=== PATIENT | female | born 1940 | race Caucasian/White ===

== ENCOUNTER 2019-11-04 14:45 | Inpatient (IN) | payer MEDICARE, OTHER ==
[~2019-11-04 14:45] MED LIST: Lidocaine 1% PF 5 ML VIAL ONE; PROPOFOL 200 MG/20 ML VIAL ONE
--- NOTE | 2019-11-04 15:40 | CT ---
CT Abdomen Pelvis WO Con 11/04/2019 3:05 PM HISTORY: Patient became hypotensive after placement of cardiac stent today. Evaluate for retroperitoneal hemor rhage. COMPARISON: None. Technique: Multiple contiguous axial CT images are obtained through the abdomen and pelvis without IV contrast. Coronal reformats are provided. FINDINGS: This examination is limited for the evaluation of solid organs and vascular structures due to the lac k of intravenous contrast. Lower Chest: There is bibasilar atelectasis. Vascular calcifications are seen in the coronary arterie s and in the visualized lower thoracic aorta. Abdomen: Liver: Grossly normal non-enhanced CT appearance. Gallbladder: Mild increased density is seen within the gallbladder lumen which could be related to vi carious excretion of contrast due to recent administration of contrast. Pancreas: Grossly normal nonenhanced CT appearance. Spleen: Grossly normal nonenhanced CT appearance. Adrenals: Grossly normal nonenhanced CT appearance. Kidneys: Residual contrast is seen in each renal collecting system and in the ureters related to rece nt contrasted study. Ureters: Proximal ureters are partially opacified but are not dilated. Pelvis: Urinary bladder: Distended with contrast. Reproductive Organs: Uterus is either small or surgically absent. Lymph Nodes: No enlarged lymph nodes. Bowel: There is colonic diverticulosis. Loops of small bowel are normal in caliber. Vessels: Vascular calcifications are seen in the abdominal aorta and involving the iliac arteries. An intra-arterial catheter is seen with tip in the right external iliac artery with the catheter entering near the junction of the right common femoral artery and external iliac artery. Peritoneum/retroperitoneum: There is increased density fluid seen in the right aspect of the pelvis w hich is adjacent to region of the iliac vessels at the level of the arterial catheter compatible with hemorrhage. Hemorrhage extends into the mid right paracolic gutter. Abdominal Wall: Small amount of hemorrhage is seen within the right inguinal region and extending int o the subcutaneous soft tissues in the perineal region on the right. Bones: Mild degenerative changes are seen in the spine. Transitional vertebra is seen at the lumbosac ral junction. There is trace grade 1 anterolisthesis of L5 on S1 related to prominent facet degenerative changes IMPRESSION: 1. Hemorrhage within the right aspect of the pelvis and extending into the right paracolic gutter wit h hemorrhage also seen in the subcutaneous soft tissues right inguinal region. An intra-arterial catheter is noted in place as described above. 2. Additional findings as described above. 3. Above findings discussed with Dr. Hoff on 11/04/2019 at 1521 hours.
[2019-11-04 15:50] LABS: #Basophils 0.1 thou/uL (0.0-0.2); #Eosinphils 0.2 thou/uL (0.0-0.7); #Monocytes 0.3 thou/uL (0.11-0.59); #Neutrophils 5.4 thou/uL (1.40-6.50); %Basophils 0.6 % (0.0-1.0); %Eosinophils 2.1 % (0.0-10.0); %Lymphocytes 24.9 % (21.0-51.0); %Monocytes 4.1 % (0.0-10.0); %Neutrophils 68.3 % (42.0-75.0); Hemoglobin 12.2 g/dL (12.0-16.0); Mean Corpuscular HGB CONC 32.6 g/dL (32.0-36.0); Mean Corpuscular Hemoglobin 29.1 pg (27.0-31.0); Mean Platelet Volume 8.5 fL (7.4-10.4); Platelet Count 163 thou/uL (130-400); Red Blood Cell (RBC) Count 4.21 mill/uL (4.20-5.40); White Blood Cell (WBC) Count 7.9 thou/uL (4.8-10.8)
[2019-11-04 15:56] LABS: INR-International Normal Ratio 1.2
[2019-11-04 15:57] LABS: PTT 106.1 SEC (22.9-36.1)
[2019-11-04 16:07] LABS: Base Excess-Venous -3.1 mmol/L (-2.0 to 3.0); Bicarbonate (HCO3v) 19.9 mmol/L (22.0-28.0); CO2 Tension (PvCO2) 28.6 mmHg (40.0-50.0); Calcium, Ionized 1.04 mmol/L (See Comments:); Chloride 105 mmol/L (98-107); Hemoglobin - Calc 11.4 g/dL (12.0-16.0); Potassium 3.6 mmol/L (3.5-5.1); Sodium 138 mmol/L (138-145); T. Carbon Dioxide 20.8 mmol/L (22.0-28.0); vO2 Saturation-calc 99.7 % (60.0-85.0)
[2019-11-04 16:30] LABS: ALT (SGPT) 20 U/L (8-55); AST (SGOT) 21 U/L (5-34); Albumin 3.9 g/dL (3.4-4.8); Alkaline Phosphatase 66 U/L (40-110); Anion Gap 16 mmol/L (10-20); BUN (Urea Nitrogen) 9 mg/dL (9.8-20.1); Bilirubin, Total 0.7 mg/dL (0.2-1.2); Calc. Creatinine Clearance 0 mL/min (70-130); Calcium 8.3 mg/dL (7.8-10.44); Carbon Dioxide 20 mmol/L (23-31); Chloride 107 mmol/L (98-107); Estimated GFR-MDRD 80; Globulin 2.2 g/dL (2.4-3.5); Glucose 99 mg/dL (83-110); Potassium 3.8 mmol/L (3.5-5.1); Protein, Total 6.1 g/dL (6.0-8.3); Sodium 139 mmol/L (136-145)
[2019-11-04 16:31] LABS: CKMB 2.1 ng/mL (0-6.6)
[2019-11-04] MEDS ORDERED: Heparin 10,000 UNITS/1 ML VIAL ONE (17:35)
[2019-11-04] MEDS ORDERED: Protamine Sulfate 50 MG/5 ML VIAL ONE (17:35)
[2019-11-04] MEDS ORDERED: Heparin 5,000 UNITS/ML VIAL ONE (17:36)
[2019-11-04 17:43] VITALS: BMI 22.6
[2019-11-04] MEDS ORDERED: Ondansetron PF 4 MG/2 ML Vial IVP PRN (18:00)
[2019-11-04] MEDS ORDERED: Senokot S 8.6-50 MG TAB PO PRN (18:00)
[2019-11-04] MEDS ORDERED: Zolpidem Tartrate 5 MG TAB PO PRN (18:00)
[2019-11-04] MEDS ORDERED: Fentanyl 100 MCG/2 ML VIAL ONE ×2 (18:06→19:19)
--- NOTE | 2019-11-04 18:18 | CON ---
DATE OF CONSULTATION: HISTORY OF PRESENT ILLNESS: This is a 78-year-old lady, there was evidence of some mild symptoms of angina pectoris and underwent cardiac catheterization today and found to have a high-grade lesion in one of her coronary arteries, which was stented and she was given 600 mg of Plavix. On removal of the sheath with attempted closure device, the patient developed a large hematoma and the 6-[place] sheath was reintroduced and then upsized to a 7-[place] sheath due to bleeding. She became hypotensive, was transferred from [facility]. She was noted to have a retroperitoneal hematoma. On review of the CT scan and angiograms, it appears that the sheath has punctured the external iliac artery and it would explain her bleeding issues. PAST MEDICAL HISTORY: Negative for hypertension. She does have elevated cholesterol level. SOCIAL HISTORY: She has no smoking history. She lives alone, although her son lives nearby and they both live in the [place] area. PAST SURGICAL HISTORY: Includes tonsillectomy and a hysterectomy and then followed by oophorectomy. PHYSICAL EXAMINATION: GENERAL: Alert and cooperative lady, in no distress. NECK: No carotid bruits. LUNGS: Clear to auscultation. CARDIAC: Regular rate and rhythm. No murmurs. VITAL SIGNS: Blood pressure 164/80 with a heart rate of 76. EXTREMITIES: She has a palpable pedal pulse in both feet. She has a sheath in her right groin with a good size tender swelling and hematoma superior to the sheath. HOME MEDICATIONS: Include: 1. Alendronate. 2. Aspirin 81 a day. 3. Atorvastatin 40 a day. 4. Hydrochlorothiazide 25 a day. 5. Pantoprazole 40 a day. 6. Tizanidine 4 mg t.i.d. ALLERGIES: TO BACTRIM. ADDITIONAL PAST MEDICAL HISTORY INCLUDES OSTEOPOROSIS, VITAMIN D DEFICIENCY, GERD, AND ARTHRITIS. AFTER REVIEW OF THE FILMS, I THINK IT WOULD BE UNSAFE TO ATTEMPT HOLDING PRESSURE ON THIS PUNCTURE SITE AFTER SHEATH REMOVAL, BECAUSE I THINK IT IS ABOVE THE INGUINAL LIGAMENT A GOOD DISTANCE AND WOULD BE QUITE DIFFICULT TO CONTROL. I THINK, I CONTROLLED REMOVAL IN THE OPERATING ROOM WITH SUTURE CLOSURE OF THE HOLE IS THE BEST APPROACH. INFORMED CONSENT HAS BEEN OBTAINED. Job ID: [id number]
[2019-11-04] MEDS ORDERED: Fentanyl 100 MCG/2 ML VIAL SLOW IVP PRN (19:04)
[2019-11-04] MEDS ORDERED: Acetaminophen 500 MG TAB PO PRN (19:04)
[2019-11-04] MEDS ORDERED: hydrALAZINE 20 MG/ML VIAL SLOW IVP PRN (19:04)
[2019-11-04] MEDS ORDERED: Lactated Ringer's 500 ML IV SCH (19:04)
[2019-11-04] MEDS ORDERED: traMADol HCl 50 MG TAB PO PRN (19:04)
[2019-11-04] MEDS ORDERED: Labetalol HCl 100 MG/20 ML VIAL ONE (19:07)
[2019-11-04] MEDS ORDERED: Promethazine HCl 25 MG/ML VIAL IM PRN (19:08)
[2019-11-04] MEDS ORDERED: Ondansetron HCl/PF 4 MG/2 ML Vial IVP PRN (19:08)
[2019-11-04] MEDS ORDERED: Promethazine HCl 25 MG/ML VIAL SLOW IVP PRN (19:08)
[2019-11-04] MEDS: Atorvastatin Calcium 40 MG TAB PO SCH (20:25)
[2019-11-04] MEDS ORDERED: Lactated Ringer's 1,000 ML IV SCH (21:00)
[2019-11-05] MEDS: Ketorolac Tromethamine 30 MG/ML VIAL IVP SCH ×4 (00:27→17:01)
[2019-11-05 04:27] LABS: #Monocytes 0.5 thou/uL (0.11-0.59); #Neutrophils 6.7 thou/uL (1.40-6.50); %Basophils 0.3 % (0.0-1.0); %Eosinophils 0.1 % (0.0-10.0); %Lymphocytes 12.1 % (21.0-51.0); %Monocytes 5.5 % (0.0-10.0); Hemoglobin 9.9 g/dL (12.0-16.0); Mean Corpuscular HGB CONC 33.7 g/dL (32.0-36.0); Mean Corpuscular Hemoglobin 29.9 pg (27.0-31.0); Mean Corpuscular Volume 88.8 fL (78.0-98.0); Mean Platelet Volume 9.2 fL (7.4-10.4); Platelet Count 169 thou/uL (130-400); Red Blood Cell (RBC) Count 3.33 mill/uL (4.20-5.40); White Blood Cell (WBC) Count 8.2 thou/uL (4.8-10.8)
[2019-11-05 04:37] LABS: Anion Gap 15 mmol/L (10-20); BUN (Urea Nitrogen) 11 mg/dL (9.8-20.1); Calc. Creatinine Clearance 60 mL/min (70-130); Calcium 8.4 mg/dL (7.8-10.44); Carbon Dioxide 21 mmol/L (23-31); Chloride 102 mmol/L (98-107); Estimated GFR-MDRD 81; Glucose 125 mg/dL (83-110); Potassium 3.5 mmol/L (3.5-5.1); Sodium 134 mmol/L (136-145)
[2019-11-05] MEDS: Aspirin 81 mg Enteric Coated Tablet PO SCH (09:56)
[2019-11-05] MEDS: Clopidogrel Bisulfate 75 MG TAB PO SCH (09:56)
[2019-11-05] MEDS: Atorvastatin Calcium 40 MG TAB PO SCH (20:13)
[2019-11-06] MEDS: Ketorolac Tromethamine 30 MG/ML VIAL IVP SCH (00:42)
[2019-11-06 04:45] LABS: #Eosinphils 0.1 thou/uL (0.0-0.7); #Lymphocytes 1.4 thou/uL (1.20-3.40); #Monocytes 0.5 thou/uL (0.11-0.59); #Neutrophils 3.4 thou/uL (1.40-6.50); %Basophils 0.6 % (0.0-1.0); %Eosinophils 2.5 % (0.0-10.0); %Lymphocytes 26.3 % (21.0-51.0); %Monocytes 8.5 % (0.0-10.0); %Neutrophils 62.2 % (42.0-75.0); Hemoglobin 9.6 g/dL (12.0-16.0); Mean Corpuscular HGB CONC 32.4 g/dL (32.0-36.0); Mean Corpuscular Hemoglobin 28.7 pg (27.0-31.0); Mean Corpuscular Volume 88.6 fL (78.0-98.0); Mean Platelet Volume 8.8 fL (7.4-10.4); Platelet Count 138 thou/uL (130-400); RBC Distribution Width 12.1 % (11.5-14.5); Red Blood Cell (RBC) Count 3.34 mill/uL (4.20-5.40); White Blood Cell (WBC) Count 5.5 thou/uL (4.8-10.8)
--- NOTE | 2019-11-06 06:31 | HP ---
CHIEF COMPLAINT: Hypotension. HISTORY OF PRESENT ILLNESS: Ms. Tucker is a very pleasant 78-year-old white female, who comes to the hospital for hypotension. She had a heart catheterization earlier in the day and was found to have stenosis of the left circumflex. She received drug-eluting stent to the area of concern with very good results. The diagnostic portion of the procedure was done from the radial approach. However, once the guide was placed through the right radial artery, she clamped down and she started spasming in the artery. We had to switch to a groin approach, so we accessed the left femoral artery with ultrasound guidance, and we advanced the 6-Palestinian sheath and did the procedure without problems. At the end of the procedure, ACT was in the low 300s, which is adequate, and sheath shot showed that she had a high stick, so this was left alone. We did try to close with the closure device. However, the closure device would not cross, so a sheath was placed back in. However, she started to have a hematoma in the site, so we had to replace for a 7-Palestinian sheath, which stopped the hematoma from prolonging; however, she started to get hypotensive. She was transferred emergently to the [facility], where she was found to have a retroperitoneal hematoma. She is being admitted for this. Currently, she denies any chest pain, tightness, or pressure, only lower abdominal pain. PAST MEDICAL HISTORY: 1. Osteoarthritis. 2. Diastolic heart failure. 3. GERD. 4. Hyperlipidemia. 5. Hypertension. 6. Migraine headaches. 7. Osteoporosis. 8. Overactive bladder. 9. Pseudophakia in both eyes. 10. Vitamin D deficiency. SURGICAL HISTORY: 1. Hysterectomy in 1972. 2. Tonsillectomy in 1951. 3. Oophorectomy in 1987. FAMILY HISTORY: Father with heart disease. Otherwise noncontributory. SOCIAL HISTORY: Social alcohol use, mostly wine. No tobacco. No drugs. OUTPATIENT MEDICATIONS: 1. Alendronate 70 mg weekly. 2. Aspirin 81 a day. 3. Atorvastatin 40 mg q.h.s. 4. Vitamin B complex. 5. Centrum Silver. 6. CoQ10. 7. Hydrochlorothiazide 25 mg a day. 8. Oxybutynin. 9. Pantoprazole 40 mg a day. 10. Tizanidine 4 mg 3 times a day. 11. Vitamin D3. 12. Vitamin E. 13. Fish oil. ALLERGIES: BACTRIM. REVIEW OF SYSTEMS: A 12-point review of systems was done and was all negative unless stated in the history of present illness. PHYSICAL EXAMINATION: VITAL SIGNS: Temperature 97.2, pulse 84, respiratory rate 20, saturating 98% on room air, and blood pressure 119/65. GENERAL: Awake, alert, and oriented x3. In no distress. HEENT: Normocephalic and atraumatic. NECK: Supple. LUNGS: Clear. CARDIOVASCULAR: S1 and S2. No S3 or S4. No murmurs. ABDOMEN: Soft. Positive bowel sounds. EXTREMITIES: No edema. SKIN: Warm and dry. LABORATORY DATA: Laboratory work was reviewed. CBC: Hemoglobin is down to 12.5, she was actually at 15 before the procedure; platelet count of 163; white count of 7.9. Coags, INR was 1.2 and a PT of 15. ABG with bicarb was a little low at 19.9. Chemistry, troponin of 0.04 with a CK-MB of 2.1, normal BUN and creatinine. GFR of 80, albumin of 3.9. CT of the abdomen was reviewed. She has a retroperitoneal bleed as well as a local right femoral hematoma. ASSESSMENT: 1. Coronary artery disease, status post stenting to the left circumflex, drug-eluting stent. 2. Retroperitoneal bleed. 3. Right groin hematoma. 4. Acute blood loss anemia. PLAN: 1. Consultation with Dr. Rogers for evaluation of suturing the insertion site. She has a sheath in place, and I do not believe she is bleeding anymore, but as soon as we pull the sheath out, she will start bleeding again, and it will be very hard to hold pressure against the abdomen. In this setting, the safest thing is to just do surgery. Dr. Rogers will evaluate for this and is already planning on taking the patient this afternoon for closure. 2. The patient is full code. 3. PPI for stress ulcer prophylaxis. 4. No Lovenox subcu at this time given her risk of bleeding. 5. Continue Plavix and aspirin. 6. Disposition: Likely in hospital for the next two days, home on Thursday. Job ID: [id number]
[2019-11-06] MEDS: Aspirin 81 mg Enteric Coated Tablet PO SCH (09:36)
[2019-11-06] MEDS: Clopidogrel Bisulfate 75 MG TAB PO SCH (09:37)
[2019-11-06 15:45] VITALS: BP 144/67; TEMP 97.8
--- NOTE | 2019-11-07 07:48 | OP ---
DATE OF PROCEDURE: 11/04/2019 PREOPERATIVE DIAGNOSES: Bleeding post cardiac catheterization. PROCEDURE: Exploration and repair of right external iliac artery. ANESTHESIA: General. EBL: 25 mL. DESCRIPTION OF PROCEDURE: After adequate anesthesia had been obtained, the patient was prepped and draped. She received 2 g of Ancef and a transverse incision was made about 3 fingerbreadths cranial to the indwelling sheath. This was carried down to the inguinal ligament, which was divided for about 1 cm and the catheter was then followed down to the artery. A pursestring 5-0 Prolene suture was placed. The catheter was removed, suture line secured. There was no bleeding; however a [id number] stitch was also placed. Following this, the wound was irrigated and closed in layers and the patient is to be taken to the recovery room. Job ID: [id number]
--- NOTE | 2019-11-08 03:39 | PQF ---
MARINA SYKES FERNANDO [id number] CLINICAL DOCUMENTATION CLARIFICATION FORM: POST DISCHARGE Addendum to original discharge summary date: ____ Late entry note date: __ DATE:11/08/2019 ATTN: oPrfirio Rivera Please exercise your independent, professional judgment in responding to the clarification form. Clinical indicators are provided on the bottom of this form for your review Please check appropriate box(s): [ ] Retroperitoneal bleeding is a Postoperative bleeding of Circulatory due Cardiac Catheterization [ ] Retroperitoneal bleeding is not a Postoperative bleeding of Circulatory due Cardiac Catheterization [ ] Other diagnosis [ ] Unable to determine In addition, please specify: Present on Admission (POA): [ ] Yes [ ] No [ ] Unable to determine CLINICAL INDICATORS - SIGNS / SYMPTOMS / LABS Abdomen/ Pelvis CT p1 11/04 Impression: Hemorrhage within the right aspect of the pelvis and extending into the right paracolic gutter with hemorrhage also seen in subcutaneous tissues right inguinal region H&P p1 11/04 Dr Hoff She had a heart catheterization earlier in the day and was found to have stenosis of the left circuflex, received drug-eluting stent to the areas of concern with very good results H&P p1 11/04 Dr Hoff At the end of the procedure, ACT was in the low 300s which is adequate, and sheath shot showed that she had a high richi, so this was left alone. We did try to close with the closure device. However, the closure device would not cross, so a sheath was placed back in. However, she started to have a hematoma in the site, so we had to replace for a 7-Kyr[place] sheath, which stopped the hematoma from prolonging; however, she started to get hypotensive RISK FACTORS H&P p1 11/04 78-year-old white female H&P p1 11/04 s/p Heart catheterization H&P p3 11/04 Retroperitoneal bleed H&P p3 11/04 Right groin hematoma TREATMENT: Cardiothoracic Surgery Consult 11/04 Taqueria Alfaro H&P p3 11/04 No Lovenox subcu at this time given her risk for bleeding Operative report p1 11/04 Exploration and repair of Right external iliac artery (This form is maintained as a part of the permanent medical record) 2014 Reissued. All Rights Reserved [email or web address]
--- NOTE | 2019-11-14 02:12 | DIS ---
DATE OF ADMISSION: 11/04/2019 DATE OF DISCHARGE: 11/06/2019 DISCHARGE DIAGNOSES: 1. Retroperitoneal hematoma with surgical repair of external iliac artery. 2. Placement of drug-eluting stent in the left circumflex at [facility]. 3. Hyperlipidemia. 4. Hypertension. 5. Gastroesophageal reflux disease. DISCHARGE MEDICATIONS: Alendronate 70 mg q.week, aspirin 81 mg daily, atorvastatin 40 at bedtime, vitamin D3 at 125 mcg daily, Plavix 75 mg daily, hydrochlorothiazide 25 daily, multivitamin daily, oxybutynin 5 mg daily, Protonix 40 mg daily, tizanidine 4 mg q.p.m., CoQ10 at 200 mg daily, vitamin B complex daily, vitamin E. DISCHARGE DISPOSITION: The patient will follow up with Dr. Hoff. HOSPITAL COURSE: Hannah Tucker is undergoing outpatient cardiac catheterization at [facility], was found to have circumflex stenosis. A drug-eluting stent was placed with good results. Initial diagnostic test was done via the radial approach. However, after placing the guide in the right radial artery, she had vasospasm and the intervention was switched to a groin approach. Ultrasound guidance is used to access the right femoral artery. She had a high stick and this was closed with a closure devise. There was difficulty in delivering this and started to have hematoma at the site. A 7-[place]aur[place] sheath was placed. She started to get hypotensive and was transferred to [facility] where she was found to have retroperitoneal hematoma. She underwent operative repair by Dr. Rogers. Her hemoglobin fell from 12.2 to 9.9 to 9.6. At time of discharge, she was doing well. Job ID: [id number]
== END 2019-11-06 15:53 | disposition home or self-care (01) | DRG 357 ==
LOC: ERS 14:45 → CCU 17:00 → 2NO 11-05 15:58
PROVIDERS: ADMIT Internal Medicine Cardiovascular Disease; ATTEND Emergency Medicine
PROC: 0W3H0ZZ Control Bleeding in Retroperitoneum, Open Approach (ICD-10-PCS; principal; 2019-11-04)
DX: K66.1 Hemoperitoneum (principal); D62 Acute posthemorrhagic anemia; I50.32 Chronic diastolic (congestive) heart failure; E78.5 Hyperlipidemia, unspecified; I25.10 Atherosclerotic heart disease of native coronary artery without angina pectoris; I11.0 Hypertensive heart disease with heart failure; M19.90 Unspecified osteoarthritis, unspecified site; K21.9 Gastro-esophageal reflux disease without esophagitis; G43.909 Migraine, unspecified, not intractable, without status migrainosus; E55.9 Vitamin D deficiency, unspecified; M81.0 Age-related osteoporosis without current pathological fracture; Z95.5 Presence of coronary angioplasty implant and graft; Z79.899 Other long term (current) drug therapy; Z79.82 Long term (current) use of aspirin
CPT/HCPCS: 36415; 74176; 80048; 80053; 82330; 82553; 82803; 84484; 85025; 85610; 85730; 86850; 86900; 86901; 93005; J1644; J1885; J2001; J2704; J2720; J3010

== ENCOUNTER 2019-11-14 15:28 | Inpatient (IN) | payer MEDICARE, OTHER ==
[2019-11-14 16:14] LABS: #Basophils 0.1 thou/uL (0.0-0.2); #Eosinphils 0.1 thou/uL (0.0-0.7); #Lymphocytes 1.3 thou/uL (1.20-3.40); #Monocytes 0.6 thou/uL (0.11-0.59); #Neutrophils 4.4 thou/uL (1.40-6.50); %Eosinophils 1.6 % (0.0-10.0); %Lymphocytes 20.3 % (21.0-51.0); %Monocytes 8.8 % (0.0-10.0); %Neutrophils 68.3 % (42.0-75.0); Hemoglobin 8.5 g/dL (12.0-16.0); Mean Corpuscular HGB CONC 34.6 g/dL (32.0-36.0); Mean Corpuscular Hemoglobin 30.5 pg (27.0-31.0); Mean Corpuscular Volume 88.1 fL (78.0-98.0); Mean Platelet Volume 7.9 fL (7.4-10.4); Platelet Count 276 thou/uL (130-400); RBC Distribution Width 12.6 % (11.5-14.5); Red Blood Cell (RBC) Count 2.78 mill/uL (4.20-5.40); White Blood Cell (WBC) Count 6.5 thou/uL (4.8-10.8)
[2019-11-14] MEDS ORDERED: Acetaminophen 325 MG TAB PO PRN (20:15)
[2019-11-14] MEDS ORDERED: Oxybutynin 5 MG TAB PO PRN (20:20)
[2019-11-14] MEDS ORDERED: Metoprolol Tartrate 25 MG TAB PO SCH (20:30)
[2019-11-14] MEDS: Atorvastatin Calcium 40 MG TAB PO SCH (21:46)
[2019-11-14 22:05] VITALS: BMI 23.0
--- NOTE | 2019-11-15 01:26 | HP ---
CHIEF COMPLAINT: Dyspnea on exertion. HISTORY OF PRESENT ILLNESS: This patient is a 78-year-old female, who was admitted to this facility on 11/04/2019. On that date, the patient underwent a heart catheterization by Dr. Hoff at which time she had stenosis of the left circumflex. She subsequently had a drug-eluting stent placed with good results. The patient had initially had attempt at a radial artery approach; however due to some spasm , it was converted to a right groin approach. The patient subsequently developed some hypotension and was found to have a leak with some pelvic hematoma. She subsequently was admitted to the hospital. She was seen in consultation by Dr. Rogers who did a cutdown of the right femoral artery and placed a pursestring in figure-eight in the right femoral artery with good hemostasis. The patient was subsequently discharged home. At the time of her discharge, her hemoglobin was at 9.6. The patient reports she felt fine for a couple days, but subsequently started developing some dyspnea on exertion. This remained fairly constant until Thursday at which time, it got worse. She reported this was only with exertion. She had no shortness of breath at rest. No orthopnea. She did have minimal cough, but that cough has gotten worse today. She says it actually got worse since she received the antibiotics and the nebulizer treatment in [place]. She denies any fevers and denies any sputum production. The patient did initially present to the emergency department in [place]. There labs revealed a normal white count. She did have a slightly elevated D-dimer and therefore had a CT angio of the chest performed, which revealed no evidence of PE, but there is a small nodular opacity in the right upper lobe concerning for possible pneumonia. She received the above-mentioned nebulizer treatment, Rocephin and azithromycin and was subsequently transferred to this facility. Also of note, the patient's hemoglobin at that time was 9.3 with a repeat of 8.3 and ultimately repeated here at 8.5. The patient reports that she has been tachycardic the entire day. She has been on the monitor throughout the day and in case that if it was below 100, it was only that way briefly. She states it was that way prior to her nebulizer treatment as well. REVIEW OF SYSTEMS: The patient denies any fevers, chills, chest pain, sputum production, orthopnea. All other systems reviewed, all pertinent positives and negatives noted in the history of present illness. PAST MEDICAL HISTORY: Osteoarthritis, diastolic congestive heart failure, coronary artery disease, gastroesophageal reflux, hyperlipidemia, hypertension, which she states is only white coat hypertension. She has migraine headaches, osteoporosis, overactive bladder, history of cataracts, vitamin D deficiency. PAST SURGICAL HISTORY: Hysterectomy in 1972, tonsillectomy 1951, oophorectomy 1987, femoral artery repair following heart catheterization and cataractectomy. FAMILY HISTORY: Father had heart disease. SOCIAL HISTORY: The patient is a nonsmoker, nondrinker, and nondrug user. She is . She is full code. Her son, Junaid would be her surrogate decision maker should that become necessary. She does also have a directive to physicians indicating that she does not want to be on any type of prolonged life support. CURRENT MEDICATIONS: 1. Alendronate 70 mg weekly. 2. Aspirin 81 mg daily. 3. Atorvastatin 40 mg at bedtime. 4. Plavix 75 mg daily. 5. B complex. 6. Centrum Silver. 7. Co Q10. 8. Vitamin D3. 9. Vitamin E, fish oil. 10. Hydrochlorothiazide 25 mg daily. 11. Oxybutynin 5 mg daily p.r.n. 12. Pantoprazole 40 mg daily. 13. Tizanidine 4 mg t.i.d. p.r.n., left leg pain. IMAGING: EKG shows sinus rhythm at 96 beats per minute. There is very minimal nonspecific T-wave changes in lead III, otherwise normal. LABORATORY DATA: White count 6.5, hemoglobin 8.5, platelets 276. Troponin less than 0.01. IMPRESSION AND PLAN: 1. Pneumonia. The patient appears to have a nodular pneumonia in the left upper lobe. She has some dyspnea on exertion, cough, and mild tachycardia. She is not febrile nor is she hypoxic. She has been started on Rocephin and azithromycin for community-acquired pneumonia. She had a very brief stay in the hospital and I believe it is reasonable to consider treating for community-acquired component. If she does not respond, would broaden to cover potential hospital bacteria. 2. Anemia. The patient's hemoglobin did drop slightly from her discharge, which I believe is likely just equilibration. We will go ahead and start her on some p.o. iron. If her counts continue to show evidence of decline, we would consider repeating a CT scan of the pelvis, although there is no evidence that she is having any continuous bleeding at this time. 3. Tachycardia. I suspect this is due to the anemia and pneumonia. She is having a fair number of paroxysmal ventricular contractions on the monitor, so I am going to ahead and give her a very small dose of some beta raul now. She is not wheezing and I think this is fairly safe. Her blood pressure looks like it will tolerate it. 4. Coronary artery disease status post stent. We will go ahead and consult Dr. Hoff. I will keep her on her Plavix and aspirin. 5. Hyperlipidemia, continue the atorvastatin. Job ID: [id number] [facility]
[2019-11-15 05:46] LABS: #Eosinphils 0.3 thou/uL (0.0-0.7); #Lymphocytes 1.4 thou/uL (1.20-3.40); #Monocytes 0.6 thou/uL (0.11-0.59); %Basophils 0.7 % (0.0-1.0); %Eosinophils 4.9 % (0.0-10.0); %Lymphocytes 27.2 % (21.0-51.0); %Monocytes 10.6 % (0.0-10.0); %Neutrophils 56.5 % (42.0-75.0); Hemoglobin 7.7 g/dL (12.0-16.0); Mean Corpuscular HGB CONC 34.4 g/dL (32.0-36.0); Mean Corpuscular Hemoglobin 31.1 pg (27.0-31.0); Mean Corpuscular Volume 90.3 fL (78.0-98.0); Platelet Count 239 thou/uL (130-400); RBC Distribution Width 12.9 % (11.5-14.5); Red Blood Cell (RBC) Count 2.47 mill/uL (4.20-5.40); White Blood Cell (WBC) Count 5.2 thou/uL (4.8-10.8)
--- NOTE | 2019-11-15 08:30 | PDOC.HOSPP ---
- Subjective Encounter Date: 11/15/19 Encounter Time: 08:28 Subjective: Feels ok. Still has cough. Starting to be productive. No chest pain. - Objective Vital Signs & Weight: Vital Signs (12 hours) Temp Pulse Resp BP BP Pulse Ox 11/15/19 07:59 97.9 F 105 H 16 157/59 H 98 11/15/19 04:00 98.6 F 110 H 16 125/79 94 L 11/14/19 23:10 98.7 F 94 16 118/57 L 98 11/14/19 20:50 98.2 F 101 H 16 130/85 97 Weight Weight 126 lb I&O: 11/14/19 11/15/19 11/16/19 06:59 06:59 06:59 Intake Total 120 Output Total 700 Balance -580 Result Diagrams: 11/15/19 04:26 Hospitalist ROS - Medication Medications: Active Medications Generic Name Dose Route Start Last Admin Trade Name Freq PRN Reason Stop Dose Admin Atorvastatin Calcium 40 mg 11/14/19 21:00 11/14/19 21:46 Lipitor PO 40 mg HS ROSALINA Administration Sodium Chloride 10 ml 11/14/19 21:00 11/14/19 21:46 Flush - Normal Saline IVF 10 ml Q12HR ROSALINA Administration - Exam General Appearance: NAD, awake alert Heart: RRR, no murmur, no gallops, no rubs, normal peripheral pulses Heart - other findings: Tachy Respiratory: CTAB, no wheezes, no rales, no ronchi, normal chest expansion, no tachypnea, normal percussion Gastrointestinal: soft, non-tender, non-distended, normal bowel sounds, no palpable masses, no hepatomegaly, no splenomegaly, no bruit Extremities: no cyanosis, no clubbing, no edema Psychiatric: normal affect, normal behavior, A&O x 3 Hosp A/P (1) Pneumonia Code(s): J18.9 - PNEUMONIA, UNSPECIFIED ORGANISM Status: Acute (2) Anemia Code(s): D64.9 - ANEMIA, UNSPECIFIED Status: Acute (3) CAD (coronary artery disease) Code(s): I25.10 - ATHSCL HEART DISEASE OF [place] CORONARY ARTERY W/O ANG PCTRS Status: Acute (4) HLD (hyperlipidemia) Code(s): E78.5 - HYPERLIPIDEMIA, UNSPECIFIED Status: Acute - Plan Pneumonia: Small nodular consolidation RUL. Has MARTINEZ and cough that is now productive. Treating for CAP with Rocephin and Azithromycin. Anemia: Had heart cath 11/04 with vascular leak and pelvic hematoma. Hgb 11/15 down more to 7.7 (from 8.6 on 11/14) CT abdomen/pelvis to rule out continued bleeding. Oral contrast only after discussion with Radiology. (Had CTA chest yesterday) Transfuse one unit PRBC in light of persistent tachycardia and CAD. CAD: S/P cath with LIZETH to LAD. Continuing Plavix and ASA. Consulted Dr. Hoff. HLD: Continue statin.
--- NOTE | 2019-11-15 08:51 | PDOC.EVN ---
Event Note - Event Note Event Note: Notified by patient's nurse that she just had a BM that looked black/rust colored and had the appearance and odor of melena. Sample was in the toilet and could not be obtained for guaiac testing. Will order that for the next one. May be the source of bleeding.
[2019-11-15] MEDS ORDERED: FLU VACC TS2019-20(65YR UP)/PF 180 MCG/0.5 ML SYRINGE IM ONE (09:00)
[2019-11-15] MEDS ORDERED: Aspirin 81 mg Enteric Coated Tablet PO SCH (09:00)
[2019-11-15] MEDS: Ferrous Sulfate 325 MG TAB PO SCH ×2 (09:23→17:31)
[2019-11-15] MEDS: Hydrochlorothiazide 25 MG TAB PO SCH (09:23)
[2019-11-15 09:42] LABS: Anion Gap 14 mmol/L (10-20); BUN (Urea Nitrogen) 11 mg/dL (9.8-20.1); Calc. Creatinine Clearance 62 mL/min (70-130); Calcium 8.9 mg/dL (7.8-10.44); Carbon Dioxide 24 mmol/L (23-31); Chloride 106 mmol/L (98-107); Estimated GFR-MDRD 82; Glucose 103 mg/dL (83-110); Potassium 3.5 mmol/L (3.5-5.1); Sodium 140 mmol/L (136-145)
[2019-11-15] MEDS: cefTRIAXone\\ROCEPHIN 1 GM in Sodium Chloride 0.9% 100 ML IVPB SCH (11:55)
--- NOTE | 2019-11-15 12:10 | CT ---
CT ABDOMEN AND PELVIS WITHOUT IV CONTRAST: HISTORY: Recent post heart catheterization and hematoma with worsening anemia. COMPARISON: 11/04/2019. FINDINGS: Absence of IV contrast reduces the sensitivity of the exam, particularly for evaluation of solid orga ns. Oral contrast was administered. There are mild dependent changes in the lung bases. There is vicarious excretion of contrast into th e gallbladder. No calculi are seen in the kidneys, ureters, or the urinary bladder. No hydrouretera l nephrosis is seen on either side. There is colonic diverticulosis without diverticulitis. Increased density fluid noted in the right aspect of the pelvis, right paracolic gutter, and right gr oin on the previous exam demonstrates significant improvement on the current study with a small amoun t of residual fluid in the right pelvis. No free air is seen. There is air in the urinary bladder more likely from recent catheterization. IMPRESSION: Interval improvement in the right-sided lower quadrant/pelvic hemorrhage since 11/04/2019. POS: VASHTI
[2019-11-15] MEDS: Clopidogrel Bisulfate 75 MG TAB PO SCH (13:52)
[2019-11-15] MEDS: Azithromycin 500 MG in Sodium Chloride 0.9% 250 ML 250 ML IVPB SCH (13:52)
[2019-11-15 16:37] LABS: Hemoglobin 10.4 g/dL (12.0-16.0)
[2019-11-15] MEDS: Atorvastatin Calcium 40 MG TAB PO SCH (19:38)
--- NOTE | 2019-11-15 19:53 | CON ---
DATE OF CONSULTATION: 11/15/2019 REASON FOR CONSULTATION: Coronary artery disease. HISTORY OF PRESENT ILLNESS: Ms. Tucker is a very pleasant 78-year-old white female, very well known to myself, who comes to the hospital for dyspnea on exertion. She was admitted for further evaluation and rule out. She has one negative troponin so far. She denies any chest pain, tightness, or pressure. Just a week ago, she had a heart catheterization that showed a severe left circumflex lesion. This was stented with a drug-eluting stent with very good results. Postoperatively, she had complications with retroperitoneal bleed related to a high stick. She had a sheath in place that was preventing her from bleeding any further and Dr. Rogers took her to the OR for closure of the common femoral artery. He put a pursestring suture there with very good results. She has had a small bleed. She went from a hemoglobin of 15 down to 12. She was discharged home in a stable condition. We checked on her over the week. She was doing very well. She came back for this. She was found to be anemic again. Her hemoglobin was down to 8.5. Before her discharge, she was at 9.6. She went down to 7.7, had to be given a unit of blood. Also had a bowel movement that appeared to be melena, so Cardiology is being consulted for further help with anti-platelet therapy in the setting of recent stenting. Ms. Tucker tells me she has had a history of diverticular disease in the past. She does not remember having bled from it, but she may have. She is unclear on this, but has been told she has diverticulosis as well. PAST MEDICAL HISTORY: 1. Osteoarthritis. 2. Diastolic heart failure. 3. Coronary artery disease, status post drug-eluting stent to the left circ. 4. GERD. 5. Hyperlipidemia. 6. Hypertension. 7. Migraine headaches. 8. Osteoporosis. 9. Overactive bladder. 10. History of cataracts. 11. Vitamin D deficiency. PAST SURGICAL HISTORY: 1. Hysterectomy in 1972. 2. Tonsillectomy. 3. Bilateral oophorectomy. 4. Femoral artery repair following heart catheterization as above. FAMILY HISTORY: Father with heart disease. SOCIAL HISTORY: No alcohol, tobacco, or drugs. OUTPATIENT MEDICATIONS: 1. Alendronate. 2. Aspirin 81 a day. 3. Atorvastatin 40 mg at bedtime. 4. Plavix 75 mg a day. 5. B complex. 6. Centrum Silver. 7. CoQ10. 8. Vitamin D3. 9. Fish oil. 10. Hydrochlorothiazide 25 mg a day. 11. Oxybutynin. 12. Pantoprazole. 13. Tizanidine. REVIEW OF SYSTEMS: A 12-point review of systems was done and was all negative unless stated in the history of present illness. PHYSICAL EXAMINATION: VITAL SIGNS: Temperature 97.6, pulse 106, respiratory rate 17, saturating 98% on room air, blood pressure 144/65. GENERAL: Awake, alert, oriented x3, in no distress. HEENT: Normocephalic and atraumatic. NECK: Supple. LUNGS: Clear. CARDIOVASCULAR: S1 and S2. No S3 or S4. No murmurs. ABDOMEN: Soft. Positive bowel sounds. EXTREMITIES: No edema. SKIN: Warm and dry. LABORATORY DATA: Laboratory work was reviewed. CBC with a white count of 6.5, hemoglobin down to 7.7, up to 10.4 after a unit of blood, normal platelet count. Chemistry was unremarkable. Troponin was undetectable x1. CT of the abdomen and pelvis show improvement in the retroperitoneal bleed that was seen just a week ago. ASSESSMENT: 1. Acute blood-loss anemia, high concern for diverticular bleed in the setting of having had diverticulitis in the past. We will ask that GI be consulted for further evaluation of this situation. She also may need upper endoscopy. 2. Coronary artery disease, stable at this time. No acute coronary syndrome. 3. Possible right upper lobe pneumonia. CT scan showed possible infiltrate in right upper lobe. Antibiotics per Primary Team. PLAN: 1. Continue Plavix only. We will hold aspirin for now. 2. We will need at least 6 months worth of Plavix, so hopefully she will not bleed again. 3. Agree with blood transfusion, hemoglobin much better now. Thank you for letting us to participate in the care of your patient. We will continue to follow. Job ID: [id number]
--- NOTE | 2019-11-16 01:33 | CON ---
DATE OF CONSULTATION: 11/14/2019 REQUESTING PHYSICIAN: Ld Villagomez MD HISTORY OF PRESENT ILLNESS: Ms. Tucker is a 78-year-old female, who recently had a cardiac cath back on the and had an episode of hypotension after the cardiac stent was placed. She had a CAT scan which showed retroperitoneal hemorrhage which was ultimately repaired by Dr. Rogers on same admission. She was discharged home on 11/06 with a hemoglobin of 9.6. She was doing well, then over the weekend she started feeling more weak and shortness of breath with exertion. Ultimately came back to the hospital, it was found that her hemoglobin of 8.3 which drop down to 7.7 today this morning and then it is up to 10 after transfusion. She was noted by the nurse to have three stools, small rust, red to black about palm size. When asked about it, she states maybe she had a little bit of blood in her stool at home over the weekend. I have talked with Dr. Hoff, who felt that from a stent standpoint she is doing well. They did rescan on her this admission, and there was no enlargement of the retroperitoneal hematoma. Additionally, she had a hemoglobin of about 15 prior to all of this. The patient notes she has had ulcers in the remote past, when her children were young. She thinks they had blood. She does not remember. She had history of a lower GI bleed, which she states was diverticular about 10 or 12 years ago. Her last colonoscopy was 2 years ago at [facility] in [place], which she reports was normal except for diverticular disease. She has been on a PPI for reflux for some time. Denies dysphagia, and she denies any prior melena or hematemesis. Denies any weight loss. PAST MEDICAL HISTORY: Coronary artery disease, status post stent recently, diastolic dysfunction, reflux, hyperlipidemia, hypertension, history of migraines, osteoporosis, overactive bladder, history of cataracts, and vitamin D deficiency. PAST SURGICAL HISTORY: Hysterectomy, tonsillectomy, oophorectomy, femoral artery repair after recent cardiac cath. She had a colonoscopy about 2 years ago in [place]. FAMILY HISTORY: Father had heart disease. There is no family history of colorectal cancer or liver disease. SOCIAL HISTORY: The patient is a nonsmoker, nondrinker. Does not use drugs. She is a full code. Her son is her surrogate decision maker. REVIEW OF SYSTEMS: Negative for shortness of breath, chest pain, dyspnea, nausea, or vomiting at this time. HOME MEDICATIONS: 1. Alendronate. 2. Aspirin. 3. Atorvastatin. 4. Plavix. 5. Centrum. 6. CoQ10. 7. Vitamin D3. 8. Vitamin E. 9. Hydrochlorothiazide. 10. Oxybutynin. 11. Pantoprazole. 12. Tizanidine. Medications here, 1. Acetaminophen. 2. Lipitor. 3. Ecotrin 81 mg. 4. Azithromycin. 5. Ceftriaxone. 6. Plavix 75. 7. Ferrous sulfate. 8. Hydrochlorothiazide. 9. Protonix (pantoprazole). PHYSICAL EXAMINATION: GENERAL: The patient is resting comfortably in bed. VITAL SIGNS: Pulse is around 100, temperature is 97, respirations 18, and blood pressure 144/65. LUNGS: Clear. HEART: Regular rate and rhythm without clicks or murmurs. ABDOMEN: Soft and nontender. EXTREMITIES: No clubbing, cyanosis, or edema. SKIN: Warm and dry. HEENT: Conjunctivae are pink. LABORATORY DATA: BUN and creatinine are 11 and 0.69 today. They were 17.7 yesterday. Electrolytes otherwise normal. ASSESSMENT: Gastrointestinal bleeding, likely diverticular. Remote history of ulcer disease. She has been on a PPI in the past. She has been on Plavix and aspirin. Recently, the Plavix apparently is being stopped. I have talked with Dr. Hoff about the patient. He would be interested in ruling out upper GI source of bleeding. It may change her management at this time. Presently, we are going to stop her aspirin but Dr. Hoff wants to continue her aspirin. I am going to leave that to him. We will plan for esophagogastroduodenoscopy for tomorrow. I discussed with the patient there may be difficulty controlling any active bleeding, but I think that is going to be unlikely in light of her chronic PPI use. If she has continued bleeding, tagged scan will be reasonable. We had to really think about stopping some of her anticoagulation, although I understand she has had a stent just placed couple of weeks ago. We will follow along with you. Job ID: [id number]
[2019-11-16 05:05] LABS: #Eosinphils 0.3 thou/uL (0.0-0.7); #Lymphocytes 1.2 thou/uL (1.20-3.40); #Monocytes 0.6 thou/uL (0.11-0.59); #Neutrophils 3.2 thou/uL (1.40-6.50); %Basophils 0.7 % (0.0-1.0); %Eosinophils 6.3 % (0.0-10.0); %Lymphocytes 22.1 % (21.0-51.0); %Monocytes 10.3 % (0.0-10.0); %Neutrophils 60.5 % (42.0-75.0); Mean Corpuscular HGB CONC 35.2 g/dL (32.0-36.0); Mean Corpuscular Hemoglobin 30.5 pg (27.0-31.0); Mean Corpuscular Volume 86.7 fL (78.0-98.0); Mean Platelet Volume 7.9 fL (7.4-10.4); Platelet Count 259 thou/uL (130-400); RBC Distribution Width 14.3 % (11.5-14.5); Red Blood Cell (RBC) Count 3.28 mill/uL (4.20-5.40); White Blood Cell (WBC) Count 5.3 thou/uL (4.8-10.8)
[2019-11-16 05:23] LABS: Anion Gap 11 mmol/L (10-20); BUN (Urea Nitrogen) 11 mg/dL (9.8-20.1); Calc. Creatinine Clearance 60 mL/min (70-130); Calcium 8.7 mg/dL (7.8-10.44); Carbon Dioxide 24 mmol/L (23-31); Chloride 104 mmol/L (98-107); Estimated GFR-MDRD 82; Glucose 96 mg/dL (83-110); Potassium 3.1 mmol/L (3.5-5.1); Sodium 136 mmol/L (136-145)
[2019-11-16] MEDS: Ferrous Sulfate 325 MG TAB PO SCH (07:22)
--- NOTE | 2019-11-16 07:40 | PDOC.HOSPP ---
- Subjective Encounter Date: 11/16/19 Encounter Time: 10:30 Subjective: Patient hungry. SOB markedly improved. Ambulated to bathroom without MARTINEZ this AM. - Objective Vital Signs & Weight: Vital Signs (12 hours) Temp Pulse Resp BP BP Pulse Ox 11/16/19 03:00 98.2 F 80 20 122/59 L 96 11/15/19 23:00 98.6 F 78 14 115/56 L 98 Weight Admit Weight 126 lb Weight 123 lb 9.6 oz I&O: 11/15/19 11/16/19 11/17/19 06:59 06:59 06:59 Intake Total 120 2020 Output Total 700 700 Balance -580 1320 Result Diagrams: 11/16/19 04:39 11/16/19 04:39 Hospitalist ROS - Review of Systems Constitutional: denies: fever, chills Respiratory: denies: cough, shortness of breath, SOB with excertion Cardiovascular: denies: chest pain, palpitations Gastrointestinal: denies: nausea, vomiting, abdominal pain - Medication Medications: Active Medications Generic Name Dose Route Start Last Admin Trade Name Freq PRN Reason Stop Dose Admin Aspirin 81 mg 11/15/19 09:00 11/15/19 13:52 Ecotrin PO 81 mg DAILY ROSALINA Administration Atorvastatin Calcium 40 mg 11/14/19 21:00 11/15/19 19:38 Lipitor PO 40 mg HS ROSALINA Administration Clopidogrel Bisulfate 75 mg 11/15/19 09:00 11/15/19 13:52 Plavix PO 75 mg DAILY ROSALINA Administration Ferrous Sulfate 325 mg 11/15/19 08:00 11/16/19 07:22 Feosol PO Not Given BID- ROSALINA Hydrochlorothiazide 25 mg 11/15/19 09:00 11/15/19 09:23 Hydrochlorothiazide PO 25 mg DAILY ROSALINA Administration Azithromycin 500 mg/ Sodium 250 mls @ 250 mls/hr 11/15/19 13:00 11/15/19 13: 52 Chloride IVPB 250 mls Q24HR ROSALINA Administration Ceftriaxone Sodium 1 gm/ 100 mls @ 200 mls/hr 11/15/19 12:00 11/15/19 11:55 Sodium Chloride IVPB 100 mls Q24HR ROSALINA Administration Pantoprazole Sodium 40 mg 11/15/19 21:00 11/15/19 19:38 Protonix PO 40 mg BID ROSALINA Administration Sodium Chloride 10 ml 02/10/20 21:00 11/15/19 19:38 Flush - Normal Saline IVF 10 ml Q12HR ROSAILNA Administration - Exam General Appearance: NAD ENT: moist mucosa Heart: RRR, no murmur, no gallops, no rubs Respiratory: CTAB, no wheezes, no rales, no ronchi Gastrointestinal: soft, non-tender, non-distended, normal bowel sounds Psychiatric: normal affect, normal behavior, A&O x 3 Hosp A/P (1) GI bleed Code(s): K92.2 - GASTROINTESTINAL HEMORRHAGE, UNSPECIFIED Status: Acute (2) Anemia due to acute blood loss Code(s): D62 - ACUTE POSTHEMORRHAGIC ANEMIA Status: Acute (3) Pneumonia Code(s): J18.9 - PNEUMONIA, UNSPECIFIED ORGANISM Status: Acute Qualifiers: Laterality: right Lung location: upper lobe of lung (4) CAD (coronary artery disease) Code(s): I25.10 - ATHSCL HEART DISEASE OF [place] CORONARY ARTERY W/O ANG PCTRS Status: Chronic Qualifiers: Coronary Disease-Associated Artery/Lesion type: [place] artery (5) HLD (hyperlipidemia) Code(s): E78.5 - HYPERLIPIDEMIA, UNSPECIFIED Status: Chronic (6) Hypokalemia Code(s): E87.6 - HYPOKALEMIA Status: Acute Plan: repleting - Plan CAD with recent drug eluting stent, needs Plavix for 6 months, holding ASA, appreciate Dr. Hoff's assistance GI bleed likely diverticular, hx of ulcers, plan to do EGD, appreciate Dr. Chris assistance Pneumonia very small, treating with Rocephin and Azithromycin since 11/14/2019 DVT Proph: SCD GI Proph: on PPI
[2019-11-16] MEDS ORDERED: tiZANidine HCl 4 MG TAB PO PRN (07:42)
[2019-11-16] MEDS ORDERED: Potassium Chloride 40 MEQ in Premix Bag 1 BAG IVPB SCH (07:45)
[2019-11-16] MEDS: Potassium Chloride 20 MEQ in Premix Bag 1 BAG IVPB SCH ×2 (08:31→09:29)
[2019-11-16] MEDS: Hydrochlorothiazide 25 MG TAB PO SCH (08:32)
[2019-11-16] MEDS: Stress 600 With Zinc 1 TAB PO SCH (08:32)
[2019-11-16] MEDS: Clopidogrel Bisulfate 75 MG TAB PO SCH (08:32)
[2019-11-16] MEDS: Ubidecarenone 50 MG CAP PO SCH (08:33)
[2019-11-16] MEDS: Multivitamin W/ Minerals 1 TAB PO SCH (08:33)
[2019-11-16] MEDS ORDERED: VITAMIN E PO SCH (09:00)
[2019-11-16] MEDS: cefTRIAXone\\ROCEPHIN 1 GM in Sodium Chloride 0.9% 100 ML IVPB SCH (10:46)
[2019-11-16] MEDS ORDERED: Ondansetron HCl/PF 4 MG/2 ML Vial IVP PRN (12:28)
[2019-11-16] MEDS ORDERED: PROPOFOL 200 MG/20 ML VIAL ONE (12:30)
[2019-11-16] MEDS: Azithromycin 500 MG in Sodium Chloride 0.9% 250 ML 250 ML IVPB SCH (13:32)
--- NOTE | 2019-11-16 13:39 | OP ---
DATE OF PROCEDURE: 11/16/2019 PROCEDURE PERFORMED: Esophagogastroduodenoscopy with balloon dilation of the esophagus and gastric biopsy. PREOPERATIVE DIAGNOSES: Anemia of acute blood loss and gastrointestinal bleed. DESCRIPTION OF PROCEDURE: Informed consent was obtained from the patient. She was sedated with total intravenous anesthesia. The bite block was placed and the endoscope was advanced to the level of the upper esophageal sphincter. There was a stricture at the upper esophageal sphincter, through which I could visualize the opening clearly. However, the scope would not pass through. There was, what looked like, a small shelf just at the top of the sphincter. I passed a 12-mm balloon through the sphincter and this was dilated to stage I, II, and III. Finally, after full dilation to 12 mm, the diagnostic endoscope could be passed through the upper esophageal sphincter into the esophagus. There was only a small slight shallow tear at the dilation site. The esophagus was otherwise unremarkable. There was a 2-cm hiatal hernia present. The stomach had a couple of 5-mm erosions in the distal gastric body/proximal antrum. This was very shallow and almost had the appearance more of a white plaque than true erosion. Biopsies were obtained from the edges of the erosions. The rest of the stomach was normal including retroflexed views. The pylorus and first and second portions of the duodenum were normal. IMPRESSION: 1. Stenosis of the upper esophageal sphincter, dilated to 12 mm with a balloon dilator with a small shallow tear at the dilation site. The scope could only be passed through the upper esophageal sphincter after dilation. 2. A 2-cm hiatal hernia. 3. There were couple of 5-mm erosions on the distal gastric body and also scattered white plaques in the same area without significant depth. There was no stigmata of recent bleeding. Biopsies were obtained from the edges of the erosions and plaques and also from the antrum to rule out Helicobacter pylori. Certainly, this is not convincing as a significant bleeding source. RECOMMENDATIONS: 1. Proton pump inhibitor twice daily. 2. If she has no further significant bleeding and her hemoglobin is stable, then she should be able to continue on her Plavix and aspirin in addition to higher dose pantoprazole. 3. If she has repeat significant overt bleeding, then a nuclear medicine abdominal bleeding scan can be obtained to help identify the level of the bleed. Job ID: [id number]
[2019-11-16] MEDS ORDERED: Potassium Chloride 20 MEQ TAB PO SCH (15:00)
[2019-11-16 17:22] LABS: #Eosinphils 0.1 thou/uL (0.0-0.7); #Monocytes 0.4 thou/uL (0.11-0.59); #Neutrophils 7.5 thou/uL (1.40-6.50); %Basophils 0.4 % (0.0-1.0); %Eosinophils 1.5 % (0.0-10.0); %Lymphocytes 11.3 % (21.0-51.0); %Monocytes 3.8 % (0.0-10.0); Hemoglobin 10.7 g/dL (12.0-16.0); Mean Corpuscular HGB CONC 32.1 g/dL (32.0-36.0); Mean Corpuscular Hemoglobin 28.1 pg (27.0-31.0); Mean Corpuscular Volume 87.7 fL (78.0-98.0); Mean Platelet Volume 7.6 fL (7.4-10.4); Platelet Count 330 thou/uL (130-400); RBC Distribution Width 14.5 % (11.5-14.5); Red Blood Cell (RBC) Count 3.81 mill/uL (4.20-5.40)
--- NOTE | 2019-11-16 19:07 | PDOC.CPN ---
- Subjective Date: 11/16/19 Time: 19:03 Interval history: She is doing well. No angina. No more bleeding. - Review of Systems General: denies: fever/chills, weight/appetite/sleep changes, night sweats, fatigue Respiratory: denies: cough, congestion, shortness of breath, exercise intolerance Cardiovascular: denies: chest pain, palpitation, edema, paroxysmal nocturnal dyspnea, orthopnea Gastrointestinal: denies: nausea, vomiting, diarrhea, constipation, abd pain, GI bleeding Musculoskeletal: denies: pain, tenderness, stiffness, swelling, arthritis/ arthralgias Neurological: denies: numbness, syncope, seizure, weakness - Objective Allergies/Adverse Reactions: Allergies Allergy/AdvReac Type Severity Reaction Status Date / Time Sulfa (Sulfonamide Allergy Verified 11/04/19 17:43 Antibiotics) sulfamethoxazole Allergy Verified 11/04/19 17:43 [From Bactrim] trimethoprim [From Bactrim] Allergy Verified 11/04/19 17:43 Visit Medications: Current Medications Acetaminophen (Tylenol) 650 mg PO Q4H PRN PRN Reason: Headache/Fever/Mild Pain (1-3) Last Admin: 11/16/19 16:46 Dose: 650 mg Atorvastatin Calcium (Lipitor) 40 mg PO HS [facility] Last Admin: 11/15/19 19:38 Dose: 40 mg Cholecalciferol (Vitamin D3) 5,000 units PO DAILY [facility] Last Admin: 11/16/19 08:32 Dose: 5,000 units Clopidogrel Bisulfate (Plavix) 75 mg PO DAILY [facility] Last Admin: 11/16/19 08:32 Dose: 75 mg Coenzyme Q10 (Coenzyme Q10) 100 mg PO DAILY [facility] Last Admin: 11/16/19 08:33 Dose: 100 mg Hydrochlorothiazide (Hydrochlorothiazide) 25 mg PO DAILY [facility] Last Admin: 11/16/19 08:32 Dose: 25 mg Azithromycin 500 mg/ Sodium (Chloride) 250 mls @ 250 mls/hr IVPB Q24HR [facility] Last Admin: 11/16/19 13:32 Dose: 250 mls Ceftriaxone Sodium 1 gm/ (Sodium Chloride) 100 mls @ 200 mls/hr IVPB Q24HR [facility] Last Admin: 11/16/19 10:46 Dose: 100 mls Iron/Minerals/Multivitamins (Theragran M) 1 tab PO DAILY [facility] Last Admin: 11/16/19 08:33 Dose: 1 tab Multivitamins/Zinc (Stress 600 With Zinc) 1 tab PO DAILY [facility] Last Admin: 11/16/19 08:32 Dose: 1 tab Oxybutynin Chloride (Ditropan) 5 mg PO DAILY PRN PRN Reason: Bladder Spasms Pantoprazole Sodium (Protonix) 40 mg PO BID [facility] Last Admin: 11/16/19 08:33 Dose: 40 mg Vitamin E (Dl, Tocopheryl Acet) 184 Unit 0 each PO DAILY [facility] Sodium Chloride (Flush - Normal Saline) 10 ml IVF Q12HR [facility] Last Admin: 11/16/19 08:33 Dose: 10 ml Sodium Chloride (Flush - Normal Saline) 10 ml IVF PRN PRN PRN Reason: Saline Flush Tizanidine HCl (Zanaflex) 4 mg PO QPM PRN PRN Reason: Muscle Pain Last Admin: 11/16/19 10:52 Dose: 4 mg Vital Signs & Weight: Vital Signs Temp Pulse Resp BP Pulse Ox 11/16/19 16:00 97.5 F L 110 H 18 129/57 L 94 L 11/16/19 13:23 98.3 F 75 16 122/73 97 11/16/19 11:00 98.9 F 99 16 119/59 L 98 11/16/19 07:38 98.5 F 90 14 107/57 L 94 L Admit Weight 126 lb Weight 123 lb 9.6 oz - Physical Exam General: alert & oriented x3 HEENT: mucus membranes moist Neck: supple neck Cardiac: regular rate and rhythm Lungs: clear to auscultation Neuro: cranial nerve 2-12 intact, grossly intact Abdomen: active bowel sounds Extremities: no edema Skin: clear Musculoskeletal: no pain - Labs Result Diagrams: 11/16/19 17:12 11/16/19 04:39 Troponin/CKMB Troponin I Less than 0.010 ng/mL (< 0.028) 11/14/19 16:07 - Telemetry Sinus rhythms and dysrhythmias: sinus rhythm - Assessment/Plan Assessment/Plan: 1. Acute blood loss anemia, likely diverticular bleed. 2. CAD, s/p stent to LCx, Drug eluting stent. 3. S/P retroperitonreal bleed with repair by Dr. Rogers, not a source of bleeding this admission. PLAN: - CV stable. no ACS. - Hgb stable. - Continue Plavix and aspirin for now. If she re bleeds will do only one anti platelet.
[2019-11-16] MEDS: Atorvastatin Calcium 40 MG TAB PO SCH (20:35)
[2019-11-17 04:50] LABS: #Eosinphils 0.2 thou/uL (0.0-0.7); #Lymphocytes 1.2 thou/uL (1.20-3.40); #Monocytes 0.7 thou/uL (0.11-0.59); #Neutrophils 5.7 thou/uL (1.40-6.50); %Basophils 0.3 % (0.0-1.0); %Eosinophils 2.6 % (0.0-10.0); %Lymphocytes 15.4 % (21.0-51.0); %Monocytes 9.3 % (0.0-10.0); %Neutrophils 72.4 % (42.0-75.0); Hemoglobin 10.2 g/dL (12.0-16.0); Mean Corpuscular HGB CONC 33.7 g/dL (32.0-36.0); Mean Corpuscular Hemoglobin 29.9 pg (27.0-31.0); Mean Corpuscular Volume 88.7 fL (78.0-98.0); Mean Platelet Volume 7.6 fL (7.4-10.4); Platelet Count 276 thou/uL (130-400); RBC Distribution Width 14.6 % (11.5-14.5); Red Blood Cell (RBC) Count 3.41 mill/uL (4.20-5.40); White Blood Cell (WBC) Count 7.9 thou/uL (4.8-10.8)
[2019-11-17 05:10] LABS: Anion Gap 13 mmol/L (10-20); BUN (Urea Nitrogen) 13 mg/dL (9.8-20.1); Calc. Creatinine Clearance 61 mL/min (70-130); Calcium 8.9 mg/dL (7.8-10.44); Carbon Dioxide 21 mmol/L (23-31); Chloride 104 mmol/L (98-107); Estimated GFR-MDRD 82; Glucose 120 mg/dL (83-110); Potassium 3.4 mmol/L (3.5-5.1); Sodium 135 mmol/L (136-145)
[2019-11-17] MEDS: Ubidecarenone 50 MG CAP PO SCH (07:43)
[2019-11-17] MEDS: Multivitamin W/ Minerals 1 TAB PO SCH (07:43)
[2019-11-17] MEDS: Stress 600 With Zinc 1 TAB PO SCH (07:43)
[2019-11-17] MEDS: Clopidogrel Bisulfate 75 MG TAB PO SCH (07:44)
[2019-11-17] MEDS: Hydrochlorothiazide 25 MG TAB PO SCH (07:44)
--- NOTE | 2019-11-17 07:54 | PDOC.HOSPP ---
- Subjective Encounter Date: 11/17/19 Encounter Time: 09:45 Subjective: Patient feeling much better. Ate breakfast well. No Blood in BM this AM. No Abd pain. - Objective Vital Signs & Weight: Vital Signs (12 hours) Temp Pulse Resp BP Pulse Ox 11/17/19 03:05 99.1 F 117 H 18 108/55 L 96 11/17/19 00:04 99.8 F H 113 H 16 121/61 95 Weight Admit Weight 126 lb Weight 124 lb 1.6 oz I&O: 11/16/19 11/17/19 11/18/19 06:59 06:59 06:59 Intake Total 2019 340 Output Total 700 Balance 1320 340 Result Diagrams: 11/17/19 04:26 11/17/19 04:26 Hospitalist ROS - Review of Systems Constitutional: denies: fever, chills Respiratory: denies: cough, shortness of breath Cardiovascular: denies: chest pain, palpitations Gastrointestinal: denies: nausea, vomiting, abdominal pain, hematochezia - Medication Medications: Active Medications Generic Name Dose Route Start Last Admin Trade Name Freq PRN Reason Stop Dose Admin Acetaminophen 650 mg 11/14/19 20:15 11/16/19 16:46 Tylenol PO 650 mg Q4H PRN Administration Headache/Fever/Mild Pain (1-3) Atorvastatin Calcium 40 mg 11/14/19 21:00 11/16/19 20:35 Lipitor PO 40 mg HS ROSALINA Administration Cholecalciferol 5,000 units 11/16/19 09:00 11/17/19 07:43 Vitamin D3 PO 5,000 units DAILY ROSALINA Administration Clopidogrel Bisulfate 75 mg 11/15/19 09:00 11/17/19 07:44 Plavix PO 75 mg DAILY ROSALINA Administration Coenzyme Q10 100 mg 11/16/19 09:00 11/17/19 07:43 Coenzyme Q10 PO 100 mg DAILY ROSALINA Administration Hydrochlorothiazide 25 mg 11/15/19 09:00 11/17/19 07:44 Hydrochlorothiazide PO 25 mg DAILY ROSALINA Administration Azithromycin 500 mg/ Sodium 250 mls @ 250 mls/hr 11/15/19 13:00 11/16/19 13: 32 Chloride IVPB 250 mls Q24HR ROSALINA Administration Ceftriaxone Sodium 1 gm/ 100 mls @ 200 mls/hr 11/15/19 12:00 11/16/19 10:46 Sodium Chloride IVPB 100 mls Q24HR ROSALINA Administration Iron/Minerals/Multivitamins 1 tab 11/16/19 09:00 11/17/19 07:43 Theragran M PO 1 tab DAILY ROSALINA Administration Multivitamins/Zinc 1 tab 11/16/19 09:00 11/17/19 07:43 Stress 600 With Zinc PO 1 tab DAILY ROSALINA Administration Pantoprazole Sodium 40 mg 11/15/19 21:00 11/17/19 07:44 Protonix PO 40 mg BID ROSALINA Administration Sodium Chloride 10 ml 11/14/19 21:00 11/17/19 07:45 Flush - Normal Saline IVF 10 ml Q12HR ROSALINA Administration Tizanidine HCl 4 mg 11/16/19 07:42 11/16/19 10:52 Zanaflex PO 4 mg QPM PRN Administration Muscle Pain - Exam General Appearance: NAD, awake alert ENT: moist mucosa Heart: RRR, no murmur, no gallops, no rubs Respiratory: CTAB, no wheezes, no rales, no ronchi Gastrointestinal: soft, non-tender, non-distended, normal bowel sounds Psychiatric: normal affect, normal behavior, A&O x 3 Hosp A/P (1) GI bleed Code(s): K92.2 - GASTROINTESTINAL HEMORRHAGE, UNSPECIFIED Status: Acute (2) Anemia due to acute blood loss Code(s): D62 - ACUTE POSTHEMORRHAGIC ANEMIA Status: Acute (3) Pneumonia Code(s): J18.9 - PNEUMONIA, UNSPECIFIED ORGANISM Status: Acute Qualifiers: Laterality: right Lung location: upper lobe of lung (4) CAD (coronary artery disease) Code(s): I25.10 - ATHSCL HEART DISEASE OF [place] CORONARY ARTERY W/O ANG PCTRS Status: Chronic Qualifiers: Coronary Disease-Associated Artery/Lesion type: [place] artery (5) HLD (hyperlipidemia) Code(s): E78.5 - HYPERLIPIDEMIA, UNSPECIFIED Status: Chronic (6) Hypokalemia Code(s): E87.6 - HYPOKALEMIA Status: Acute - Plan CAD with recent drug eluting stent, needs Plavix for 6 months, restart ASA GI bleed likely diverticular, EGD without sequela of upper GI bleeding, did have dilation of esophageal stricture Pneumonia very small, treating with Rocephin and Azithromycin since 11/14/2019, switch to po abx, total 5 days azithro and 7 days cephalosporin H/H stable, dual antiplatelet therapy unless bleeds again, will d/c home DVT Proph: SCD GI Proph: on PPI
[2019-11-17 08:23] VITALS: BP 125/58; TEMP 98.2
[2019-11-17] MEDS ORDERED: Aspirin 81 mg Enteric Coated Tablet PO SCH (09:00)
[2019-11-17] MEDS: Azithromycin 500 MG in Sodium Chloride 0.9% 250 ML 250 ML IVPB SCH (10:35)
[2019-11-17] MEDS: cefTRIAXone\\ROCEPHIN 1 GM in Sodium Chloride 0.9% 100 ML IVPB SCH (10:35)
--- NOTE | 2019-11-17 17:17 | DIS ---
DATE OF ADMISSION: 11/16/2019 DATE OF DISCHARGE: 11/17/2019 PRIMARY CARE PHYSICIAN: Dr. Torres. REASON FOR ADMISSION: Dyspnea on exertion and anemia. DIAGNOSES AT DISCHARGE: 1. Lower GI bleed, likely diverticular, resolved. 2. Anemia due to acute blood loss, improved after transfusion. 3. Mild pneumonia. 4. Coronary artery disease. 5. Hyperlipidemia. 6. Hypokalemia, improving. PROCEDURES: 1. CT abdomen and pelvis showing interval improvement of right-sided lower quadrant pelvic hemorrhage. No other significant abnormalities noted. 2. EGD with balloon dilation of the esophagus and gastric biopsy showing stenosis of the upper esophageal sphincter, 2 cm hiatal hernia and a couple of 5 mm erosions in the distal gastric body with no stigmata of recent bleeding. CONSULTATIONS: 1. Gastroenterology, Dr. Chris. 2. Cardiology, Dr. Hoff. SUMMARY OF HOSPITAL COURSE: This is a 78-year-old white female with a known history of coronary artery disease with known stenosis of left circumflex artery with a drug-eluting stent placed last month. This is complicated by a pelvic hematoma that is what to be repaired by Dr. Rogers. The patient was doing well at home until she started to get some dyspnea on exertion and a little bit of cough. She was seen in outside emergency room. She was noted to have a CT angio of the chest showing small nodular right upper lobe pneumonia with a normal white count, given antibiotics and also noted that her hemoglobin had dropped since her last hospitalization. She is also tachycardic. She had a CT scan done, which showed that hematoma from her previous admission was not worsening. No evidence of continued bleeding. She was transferred here. Cardiology and Gastroenterology were consulted. Her Plavix was continued due to her new stents, however, aspirin was held for temporarily. The patient was given transfusion and had resolution of her symptoms. Dr. Chris of Gastroenterology was consulted. She had noted some blood in her stool as well as she probably had a diverticular bleed from known diverticulosis; however, she did get an EGD to make sure she was not having any upper gastrointestinal blood loss with results as above, Dr. Chris recommended twice a day proton pump inhibitor, but that she could resume her aspirin and Plavix. This has been done and she has been cleared to discharge home. Her hemoglobin has remained stable over the last 3 days after transfusion. DISCHARGE MANAGEMENT: Discharged to home. ACTIVITY: As tolerated. DIET: Healthy heart diet. FOLLOWUP: Follow up with Dr. Torres in the next week or so, with Dr. Hoff in 2 to 3 weeks, and Dr. Chris in 1 month. DISCHARGE MEDICATIONS: 1. Azithromycin 250 mg daily for two more days. 2. Cefdinir 300 mg twice a day for four more days. 3. Atorvastatin 40 mg at night. 4. Vitamin D3 of 125 mcg daily. 5. Plavix 75 mg daily. 6. Hydrochlorothiazide 25 mg daily. 7. Centrum Silver 1 tablet daily. 8. Oxybutynin 5 mg daily as needed. 9. Tizanidine 4 mg as needed daily as needed. 10. Coenzyme Q10 of 100 mg daily. 11. Vitamin B complex one tablet daily. 12. Stress-600 with Zinc one tablet daily. 13. Aspirin 81 mg daily. 14. Alendronate 70 mg every 70 days. 15. Vitamin E 184 mg daily. Job ID: [id number]
== END 2019-11-17 12:03 | disposition home or self-care (01) | DRG 377 ==
LOC: ERS 15:28 → 2SW 20:57 → OBSVTOIN 11-16 15:14
PROVIDERS: ADMIT Internal Medicine; ATTEND Emergency Medicine
PROC: 30233N1 Transfusion of Nonautologous Red Blood Cells into Peripheral Vein, Percutaneous Approach (ICD-10-PCS; 2019-11-15)
PROC: 0DB78ZX Excision of Stomach, Pylorus, Via Natural or Artificial Opening Endoscopic, Diagnostic (ICD-10-PCS; principal; 2019-11-16)
PROC: 0D758ZZ Dilation of Esophagus, Via Natural or Artificial Opening Endoscopic (ICD-10-PCS; 2019-11-16)
DX: K57.33 Diverticulitis of large intestine without perforation or abscess with bleeding (principal); J18.1 Lobar pneumonia, unspecified organism; D62 Acute posthemorrhagic anemia; I50.32 Chronic diastolic (congestive) heart failure; I25.10 Atherosclerotic heart disease of native coronary artery without angina pectoris; E78.5 Hyperlipidemia, unspecified; E87.6 Hypokalemia; M19.90 Unspecified osteoarthritis, unspecified site; I11.0 Hypertensive heart disease with heart failure; K21.9 Gastro-esophageal reflux disease without esophagitis; E55.9 Vitamin D deficiency, unspecified; G43.909 Migraine, unspecified, not intractable, without status migrainosus; M81.0 Age-related osteoporosis without current pathological fracture; N32.81 Overactive bladder; Z98.42 Cataract extraction status, left eye; Z98.41 Cataract extraction status, right eye; Z90.710 Acquired absence of both cervix and uterus; Z95.5 Presence of coronary angioplasty implant and graft; Z88.2 Allergy status to sulfonamides; Z88.8 Allergy status to other drugs, medicaments and biological substances
CPT/HCPCS: 36415; 36430; 74177; 80048; 82274; 85025; 86850; 86900; 86901; 88305; 88312; 99285; J0456; J0696; J2704; J3480; J3490; J7050; P9016

== ENCOUNTER 2020-07-20 12:31 | Outpatient (CLI) | payer MEDICARE, OTHER ==
--- NOTE | 2020-07-20 13:42 | MRI ---
MRI Upper Ext Jt Lt WO Con History: Shoulder pain Comparison: Radiograph July 10, 2020 Findings: Biceps tendon: Severe interstitial tearing throughout the extra-articular tendon with dale ening and loss of normal round contour. Tear extends into the intra-articular tendon. Biceps tendon subluxes upon the lesser tuberosity. High-grade undersurface partial tearing of the subscapularis ten don as well as deficient coracohumeral ligament and superior glenohumeral ligament portions of the biceps sarah. Labrum: Posterior chondral labral junction old tear. Intrasubstance superior labral tear anterior-pos terior to the biceps labral expansion. Rotator cuff: Interstitial tearing throughout the footprint supraspinatus tendon without high-grade a rticular or bursal surface component. Moderate tendinosis of the critical zone supraspinatus tendon. No full-thickness perforation. Bones: Type I acromion. Normal glenoid version. No acute fracture or malalignment. Muscles: No muscle atrophy. No significant myotendinous edema. Soft tissues: Small subacromial/subdeltoid bursa effusion. Moderate joint fluid within the biceps ten don sheath. Subcoracoid fat is relatively maintained. Axillary pouch is normal. Impression: 1. High-grade interstitial type tearing of the extra articular biceps tendon which is flattened and s ubluxed upon the lesser tuberosity through insufficient biceps sarah mechanism and deep undersurface partial tear subscapularis tendon. 2. Extensive interstitial tearing throughout the supraspinatus tendon footprint without full-thicknes s tear. 3. [id number] supraspinatus critical zone tendinosis without significant tear. Low-grade und ersurface fraying. 4. Intrasubstance superior labral tear anterior-posterior to the biceps labral expansion along the po sterior chondral labral junction Al[place]. 5. Relatively intact glenohumeral cartilage.
== END 2020-07-20 12:32 | disposition home or self-care (01) ==
LOC: TBSIIMAG 12:31
PROVIDERS: ATTEND Orthopaedic Surgery
DX: M25.512 Pain in left shoulder (principal); M75.102 Unspecified rotator cuff tear or rupture of left shoulder, not specified as traumatic; S43.402A Unspecified sprain of left shoulder joint, initial encounter

== ENCOUNTER 2020-10-26 15:00 | Observation (INO) | payer MEDICARE, OTHER ==
[2020-10-26 19:29] VITALS: BMI 22.6
[2020-10-26] MEDS ORDERED: Ondansetron PF 4 MG/2 ML Vial IVP PRN (19:45)
[2020-10-26] MEDS ORDERED: Ondansetron ODT 4 MG TAB SL PRN (19:45)
[2020-10-26] MEDS ORDERED: Acetaminophen 325 MG TAB PO PRN (20:45)
[2020-10-26] MEDS ORDERED: tiZANidine HCl 4 MG TAB PO PRN (21:00)
[2020-10-26] MEDS ORDERED: Lidocaine 2% Viscous Solution 10 ML, Aluminum & Magnesium Hydroxide 30 ML SSW SCH (21:00)
[2020-10-26] MEDS ORDERED: Atorvastatin Calcium 40 MG TAB PO SCH (21:00)
[2020-10-26 21:16] LABS: Troponin I Less than 0.010 ng/mL (< 0.028)
[2020-10-26] MEDS: Sucralfate 1 GM TAB PO SCH (21:32)
--- NOTE | 2020-10-26 22:23 | HP ---
ALUMINUM POLISHER: Dr. Hoff. CHIEF COMPLAINT: Chest pain, shortness of breath. HISTORY OF PRESENT ILLNESS: Ms. Tucker is a very pleasant 79-year-old female who reported to the Emergency Room in [place] today for chest pain, substernal with some shortness of breath and a cough. She reports the chest pain started about 2 days ago, feels like a pressure and burning. She reports that her esophagus vang anytime she eats or drinks anything. She reports that she has sinus drainage which is causing her to have a productive cough and she coughed some clear phlegm. She denies any abdominal pain, nausea, vomiting. She does report some intermittent constipation, for which she takes some laxatives for and it resolves. She does report that she has some loose bowel movements currently and she noticed today that they were almost black in color, but denies this has happened in the last week or so. She does report that she has had some increasing shortness of breath with exertion and intermittent chest pain. Reports that she had a tele health visit with Dr. Hoff one month ago and that he talked to her about it and asked her to consider having a repeat cardiac cath to look at her coronary arteries. She had a cardiac cath in 2019. He placed a drug-eluting stent in 2019. She is on Ranexa 1000 mg p.o. b.i.d. she had a cardiac cath done on 11/04/[address] Rogers had to repair a bleed at the insertion site for the cardiac cath. She subsequently developed pneumonia and had to be hospitalized. She reports that she has not had any trouble with that since that time. EKG in the emergency room shows a normal sinus rhythm at 94 beats per minute. No T-wave or ST changes or elevation. This was compared to the prior EKG from November 2019 and the ER physician reports no changes. Her first troponin in the Emergency Room at [place] was negative the second one was slightly bumped at 0.03. Because of her cardiac history and symptoms, the patient was sent to [facility] on the telemetry unit for further management. She had a slightly elevated D-dimer while she was in the ER and so they did a CTA of her chest, which showed no evidence of any pulmonary emboli. CBC in the emergency room was unremarkable. D-dimer was 0.55. She was slightly hyponatremic at 134, but otherwise unremarkable. ALLERGIES: TO SULFA, BACTRIM DS. HOME MEDICATIONS: 1. Tizanidine 4 mg p.o. q.p.m. p.r.n. 2. Vitamin B12 500 mg p.o. daily. 3. Vitamin E 184 units p.o. daily. 4. Vitamin B 1 tab p.o. daily. 5. CoQ10 enzyme 100 mg p.o. daily. 6. Ranexa 1000 mg p.o. b.i.d. 7. Protonix 40 mg p.o. b.i.d. 8. Ditropan 5 mg p.o. daily. 9. Lisinopril 2.5 mg p.o. daily. 10. Plavix 75 mg p.o. daily. 11. Vitamin D 125 mcg p.o. daily. 12. Atorvastatin 40 mg p.o. at bedtime. 13. Aspirin 81 mg p.o. daily. 14. Alendronate 70 mg p.o. as directed. PAST MEDICAL HISTORY: Pertinent for coronary artery disease, hyperlipidemia, hypertension. PAST SURGICAL HISTORY: Tonsillectomy, cardiac cath in 2019, hysterectomy, oophorectomy. PSYCHIATRIC HISTORY: None. SOCIAL HISTORY: Rarely, she drinks socially. Denies any drug use. No smoking history. REVIEW OF SYSTEMS: The patient reports substernal chest pain, worse with cough. Reports a burning sensation down her esophagus with anything to drink or eat. She reports cough. Reports increasing shortness of breath, especially on exertion. Reports clear sputum. Reports postnasal drip. Denies fever or chills. Denies any abdominal pain, nausea, vomiting. Does report some intermittent constipation. PHYSICAL EXAMINATION: VITAL SIGNS: Blood pressure 127/56, pulse is 74, respiratory rate is 18, pO2 sats are 92% on room air. CONSTITUTIONAL: Patient appears nontoxic. She is alert and oriented to person, place and time. HEENT: Head is atraumatic and normocephalic. Eyes, pupils are equally round and reactive to light. NECK: Normal range of motion. No JVD is noted. RESPIRATORY: Breath sounds are clear. Chest expansion is equal. CARDIOVASCULAR: Regular heart rate and rhythm. Pedal pulses are normal. ABDOMEN: Nontender. No rebound or guarding. EXTREMITIES: Lower extremity, normal range of motion, normal strength. No calf swelling. NEURO: Patient is alert and oriented to person, place, and time. SKIN: Warm, dry, normal in color. There is no edema noted. PSYCH: She has a normal affect. PLAN/ASSESSMENT: 1. Chest pain. We will order third troponin. She has had 2. Second one was slightly elevated at 0.031. With her description of the pain, it might be multifactorial. She might have some little osteochondritis with this cough. It sounds like she might have a little gastritis with describing a burning sensation when she eats or drinks. I will order some Carafate a.c. at bedtime. We will hold her aspirin and Plavix for now. She reports some dark stools this morning, so we will check that for occult blood. If that comes back negative, she can be potentially restarted on her Plavix and aspirin. We will go ahead and order an echocardiogram. After talking with her about Dr. Hoff's desire to potentially repeat the cardiac cath, we will hold off on a stress test for now, trend the troponin. A cardiology consult may be in order. 2. History of hypertension. We will restart her home medications. 3. History of some anemia. She had an upper GI in 2019, which did not show any significant bleeding, but we will go ahead and repeat the occult blood studies and hold her Plavix for now. We will re-evaluate once the studies come back. 4. SCD compression for DVT prophylaxis. We will restart her Protonix b.i.d. 5. Case discussed with Dr. Villagomez. 6. Hospital course dependent on clinical findings. Job ID: [id number]
[2020-10-27 04:47] LABS: #Eosinphils 0.2 thou/uL (0.0-0.7); #Lymphocytes 1.5 thou/uL (1.20-3.40); #Monocytes 0.6 thou/uL (0.11-0.59); #Neutrophils 3.2 thou/uL (1.40-6.50); %Basophils 0.4 % (0.0-1.0); %Eosinophils 3.9 % (0.0-10.0); %Lymphocytes 26.6 % (21.0-51.0); %Neutrophils 58.1 % (42.0-75.0); Hemoglobin 10.9 g/dL (12.0-16.0); Mean Corpuscular HGB CONC 33.6 g/dL (32.0-36.0); Mean Corpuscular Hemoglobin 29.2 pg (27.0-31.0); Mean Corpuscular Volume 86.8 fL (78.0-98.0); Platelet Count 216 thou/uL (130-400); RBC Distribution Width 12.5 % (11.5-14.5); Red Blood Cell (RBC) Count 3.75 mill/uL (4.20-5.40); White Blood Cell (WBC) Count 5.5 thou/uL (4.8-10.8)
[2020-10-27 05:10] LABS: ALT (SGPT) 14 U/L (8-55); AST (SGOT) 16 U/L (5-34); Albumin 3.6 g/dL (3.4-4.8); Alkaline Phosphatase 66 U/L (40-110); Anion Gap 12 mmol/L (10-20); BUN (Urea Nitrogen) 20 mg/dL (9.8-20.1); Bilirubin, Total 0.5 mg/dL (0.2-1.2); Calc. Creatinine Clearance 51 mL/min (70-130); Calcium 8.5 mg/dL (7.8-10.44); Carbon Dioxide 23 mmol/L (23-31); Chloride 101 mmol/L (98-107); Globulin 2.7 g/dL (2.4-3.5); Glucose 100 mg/dL (83-110); Potassium 4.2 mmol/L (3.5-5.1); Protein, Total 6.3 g/dL (5.8-8.1); Sodium 132 mmol/L (136-145)
[2020-10-27] MEDS: Sucralfate 1 GM TAB PO SCH ×2 (08:35→12:02)
[2020-10-27] MEDS ORDERED: Enoxaparin Sodium 40 MG/0.4 ML SYRINGE SC SCH (09:00)
[2020-10-27] MEDS ORDERED: Lisinopril 2.5 MG TAB PO SCH (09:00)
[2020-10-27] MEDS ORDERED: Oxybutynin 5 MG TAB PO SCH (12:00)
[2020-10-27] MEDS ORDERED: Aspirin 81 mg Enteric Coated Tablet PO SCH (12:00)
[2020-10-27 12:08] VITALS: BP 114/56; TEMP 97.2
--- NOTE | 2020-10-27 17:22 | PDOC.DS.DS ---
Provider - Provider Date of Admission: 10/26/20 19:03 Date of Discharge: 10/27/20 Admitting Provider: Ld Villagomez MD Primary Care Physician: Keena Swift Course - Hospital Course Hospital Course: Patient is a very pleasant 79-year-old female who presents to the hospital with burning chest pain. She had only one mildly elevated indeterminant troponin. Patient stated that her burning chest pain improved after GI cocktail. Patient has had dark stools in the past and has underwent an EGD colonoscopy. She does have diverticulosis.Patient's EGD was done with balloon dilation in the esophagus she also had a hiatal hernia and small erosions in the gastric body. Patient's H&H was stable. Her occult test was positive. Patient at this time was asked to continue twice daily Protonix. And asked to follow-up with the primary to get a CBC next week. If her CBC continue to worsen she will require to follow-up with GI possible have an endoscopy. Patient clinically stable. She currently had no chest pain. Patient recently had a cardiac cath and was on dual antiplatelet therapy. At this time I have advised her to just take aspirin since his been a year I asked her to continue the aspirin for now. I also asked her to follow-up with Dr. Spring on Thursday about this change. I do not think this patient requires any more further testing especially since she had her cardiac cath about a year ago. I do not have the cardiac cath report. I have advised the patient if any changes occur she needs to come back to the hospital. Patient was taking Protonix daily I have advised her to get twice a day. Her EKG was normal she had no events overnight. Resuscitation Status: 10/26/20 20:45 Resuscitation Status Routine Co-Sign Provider: Resuscitation Status: FULL: Full Resuscitation Discussed with: Patient Additional comments: Son Junaid is surrogate decision maker - Labs Lab Results: 10/27/20 04:33 10/27/20 04:33 Abnormal Lab Results - Last 48 hrs 10/27/20 04:33: Sodium 132 L 10/27/20 04:33: RBC 3.75 L, Hgb 10.9 L, Hct 32.5 L, Monocytes % 11.0 H, Monoc ytes # 0.6 H Microbiology - Entire Visit 10/26/20 23:00 Stool - Formed - Final - Physical Exam Vitals: Vital Signs (12 hours) Temp Pulse Resp BP Pulse Ox 10/27/20 12:04 97.2 F L 88 18 114/56 L 97 10/27/20 08:38 83 118/55 L 10/27/20 07:50 98.8 F 92 16 103/53 L 96 Weight Weight 123 lb 7.344 oz Physical Exam: The patient was seen and examined on the day of discharge. Problem - Discharge Plan Assessment: 1. Atypical chest pain most likely GI related, #2 history of CAD status post stent in the left circumflex, # stool for occult blood however H&H stable. Plan - Discharge Medications Prescriptions: Psyllium Husk [Daily Fiber] 0.52 gm PO DAILY #30 capsule Home Medications: Medication Instructions Recorded Confirmed Type Alendronate Sodium 70 mg PO SEEPHYS 11/04/19 10/26/20 History Aspirin [Ecotrin Low Strength] 81 mg PO DAILY 11/04/19 10/26/20 History Cholecalciferol (Vitamin D3) 125 mcg PO DAILY 11/04/19 10/26/20 History [Vitamin D3] Multivit-Min/FA/Lycopen/Lutein 1 each PO DAILY 11/04/19 10/26/20 History [Centrum Silver Tablet] Oxybutynin Chloride 5 mg PO DAILY 11/04/19 10/26/20 History Ubidecarenone [Co Q-10] 100 mg PO DAILY 11/04/19 10/26/20 History Vitamin B Complex [B Complex] 1 tab PO DAILY 11/04/19 10/26/20 History Vitamin E (Dl,Tocopheryl Acet) 184 unit PO DAILY 11/04/19 10/26/20 History [Vitamin E] tiZANidine HCl [Tizanidine HCl] 4 mg PO QPM PRN 11/04/19 10/26/20 History Atorvastatin Calcium 40 mg PO HS #0 11/06/19 10/26/20 Rx Pantoprazole [Protonix] 40 mg PO BID #60 tab 11/17/19 10/26/20 Rx Lisinopril 2.5 mg PO DAILY 10/26/20 10/26/20 History Ranolazine [Ranexa] 1,000 mg PO BID 10/26/20 10/26/20 History Vitmain B12 500 mg PO DAILY 10/26/20 10/26/20 History Psyllium Husk [Daily Fiber] 0.52 gm PO DAILY #30 capsule 10/27/20 Rx Allergies: Sulfa (Sulfonamide Antibiotics) Allergy (Verified 10/26/20 19:48) sulfamethoxazole [From Bactrim] Allergy (Verified 10/26/20 19:48) trimethoprim [From Bactrim] Allergy (Verified 10/26/20 19:48) - Discharge Instructions Discharge Instructions:: YOU WILL NEED TO FOLLOW UP WITH DR HOFF (CALL HIM TO MAKE SURE IT IS OK TO STOP PLAVIX). DO NOT TAKE PLAVIX TOMORROW. FOLLOW UP WITH YOUR PRIMARY CARE DOCTOR AND CALL HER TO GET A LAB SLIP FOR THURSDAY. THIS LAB IS TO MAKE SURE THAT YOUR HEMOGLOBIN IS STABLE. Activity:: Activity as Tolerated Nourishment:: Heart Healthy Diet - Follow up Plan Referrals: Katya Torres MD [Primary Care Provider] - 7 Days (Please call the office to make an appointment.) Porfirio Hoff MD [Active] - 2-3 Weeks (Please call the office to make an appointment.) Disposition: HOME Quality - Care Measures CORE MEASURES:: N/A
[2020-10-27] MEDS ORDERED: FLU VACC QS2020-21(65YR UP)/PF 240 MCG/0.7 ML SYRINGE IM ONE (21:00)
[2020-10-28] MEDS ORDERED: Aspirin 81 mg Enteric Coated Tablet PO SCH (09:00)
[2020-10-28] MEDS ORDERED: Oxybutynin 5 MG TAB PO SCH (09:00)
[2020-10-28 17:44] LABS: SARS-CoV-2 PCR NAA for Saliva Not Detected (NotDetected)
== END 2020-10-27 13:30 | disposition home or self-care (01) ==
LOC: 2NO 19:03
PROVIDERS: ADMIT Internal Medicine; ATTEND Internal Medicine
DX: R07.89 Other chest pain (principal); I25.10 Atherosclerotic heart disease of native coronary artery without angina pectoris; E78.5 Hyperlipidemia, unspecified; I10 Essential (primary) hypertension; Z79.02 Long term (current) use of antithrombotics/antiplatelets; Z79.82 Long term (current) use of aspirin; Z79.899 Other long term (current) drug therapy; Z88.2 Allergy status to sulfonamides; Z95.5 Presence of coronary angioplasty implant and graft; Z20.822 Contact with and (suspected) exposure to COVID-19
CPT/HCPCS: 80053; 84484; 85025; 93306; U0003; U0005; 36415; 82270; 87635; G0378

== ENCOUNTER 2020-11-08 16:11 | Inpatient (IN) | payer MEDICARE, OTHER ==
[~2020-11-08 16:11] MED LIST changes: +Iopamidol-370 76% 500 ML 1 ML ONE; -Lidocaine 1% PF 5 ML VIAL ONE; -PROPOFOL 200 MG/20 ML VIAL ONE
[2020-11-08 16:59] LABS: #Eosinphils 0.2 thou/uL (0.0-0.7); #Lymphocytes 1.5 thou/uL (1.20-3.40); #Monocytes 0.6 thou/uL (0.11-0.59); %Basophils 0.6 % (0.0-1.0); %Eosinophils 2.8 % (0.0-10.0); %Lymphocytes 23.5 % (21.0-51.0); %Monocytes 9.2 % (0.0-10.0); %Neutrophils 63.8 % (42.0-75.0); Hemoglobin 5.7 g/dL (12.0-16.0); Mean Corpuscular HGB CONC 31.8 g/dL (32.0-36.0); Mean Corpuscular Hemoglobin 28.9 pg (27.0-31.0); Platelet Count 349 thou/uL (130-400); RBC Distribution Width 15.9 % (11.5-14.5); Red Blood Cell (RBC) Count 1.98 mill/uL (4.20-5.40); White Blood Cell (WBC) Count 6.3 thou/uL (4.8-10.8)
[2020-11-08 17:03] LABS: PTT 21.6 sec (22.9-36.1); Prothrombin Time 13.2 sec (12.0-14.7)
[2020-11-08 17:18] LABS: ALT (SGPT) 16 U/L (8-55); AST (SGOT) 18 U/L (5-34); Albumin 3.7 g/dL (3.4-4.8); Alkaline Phosphatase 57 U/L (40-110); Anion Gap 18 mmol/L (10-20); BUN (Urea Nitrogen) 11 mg/dL (9.8-20.1); Bilirubin, Total 0.3 mg/dL (0.2-1.2); Calc. Creatinine Clearance 0 mL/min (70-130); Calcium 8.6 mg/dL (7.8-10.44); Carbon Dioxide 18 mmol/L (23-31); Chloride 105 mmol/L (98-107); Globulin 2.6 g/dL (2.4-3.5); Glucose 106 mg/dL (83-110); Potassium 3.8 mmol/L (3.5-5.1); Protein, Total 6.3 g/dL (5.8-8.1); Sodium 137 mmol/L (136-145)
[2020-11-08] MEDS ORDERED: Pantoprazole 80 MG, Admixture Fee 1 EACH in Sodium Chloride 0.9% 100 ML IVPB SCH (18:00)
--- NOTE | 2020-11-08 18:17 | CT ---
CT ABDOMEN AND PELVIS WITH IV CONTRAST 11/08/2020 CLINICAL INFORMATION: Shortness of breath, black stools, abdominal pain. Decreasing hemoglobin. COMPARISON: Noncontrast CT abdomen and pelvis on 11/15/2019 and CTA chest on 10/26/2020 Technique: Multiple contiguous axial CT images are obtained through the abdomen and pelvis with IV contrast. Cor onal reformatted images are provided. FINDINGS: Lower Chest: Mild linear scarring is seen within the right middle lobe and lingula. Dependent bibasil ar atelectasis is present. Vessels: Vascular calcifications are seen in the abdominal aorta and iliac arteries. Abdomen: Portal vein:Patent Gallbladder: Within normal limits for CT imaging. Liver: within normal limits. Spleen: within normal limits. Pancreas: within normal limits. Adrenals: within normal limits. Kidneys: within normal limits. Bowel: Evidence of colonic diverticulosis. Small amount retained fecal material seen throughout the c olon. Loops of small bowel are normal in caliber. Appendix: Not identified on this exam, there are no secondary signs to suggest appendicitis. Peritoneum: No ascites or free air; no fluid collection. Mesentery and Retroperitoneum: No enlarged mesenteric or retroperitoneal lymph nodes. Abdominal Wall: within normal limits. Pelvis: Reproductive Organs: Evidence of hysterectomy. Bladder: within normal limits. Bones: Degenerative changes are again seen in the lumbar spine. There is grade 1 anterolisthesis of L 5 on S1 related to prominent facet degenerative changes. IMPRESSION: 1. No acute findings in the abdomen or pelvis. 2. Colonic diverticulosis.
--- NOTE | 2020-11-08 21:50 | PDOC.HHP ---
Hospitalist HPI History of Present Illness: ADMISSION DATE: 11/08/2020 TIME OF ASSESSMENT: 1999 PRIMARY CARE PHYSICIAN: Dr. Torres CHIEF COMPLAINT: Generalized weakness and shortness of breath HPI: This is a 79-year-old woman who presents to the emergency department as directed by Dr. Chris following an appointment with him today during which she was found to have guaiac positive stools. The patient apparently was feeling well in herself 2 weeks ago at which time she was walking 1 to 1-1/2 miles with her son. A week ago however she began to experience generalized weakness and shortness of breath with exertion which limited her activity significantly. She was only able to get out of bed and go to the living room and spent most of her day laying on the couch. She saw her primary care physician due to the difficulty with her breathing and was started on citalopram for anxiety. The patient states she had 1 dose of it and felt significantly worse. She decided to discontinue the medication and states she had also been started on iron tablets. Recalls having dark-colored stools since Thursday but thought that this was associated with preceding constipation. Denies noting any bright red blood per rectum. Reports having epigastric discomfort and burning sensation for which she began taking Maalox. States she has had a history of ulcers and anemia in the past, requiring endoscopic evaluation done by Dr. Chris 1 year ago. The patient states after contacting her primary care physician again she was set up to follow-up with Dr. Chris in clinic today. He obtain a stool study that was positive for occult blood and advised her to come to the ER. Of note patient reports undergoing a cardiac stent by Dr. Hoff for 95% occlusion of LCx. She had an echo done last month on 10/27/2020 which showed an EF of 55 to 60%. E/a flow reversal noted. Suggestive of diastolic dysfunction. Mild mitral regurgitation and mild tricuspid regurgitation. She had an EGD done by Dr. Trevino on 11/16/2019 with balloon dilation of the esophagus and gastric biopsy. She was noted to have stenosis of the upper esophageal sphincter and a small shallow tear at the dilation site. A 2 cm hiatal hernia was noted. A couple of 5 mm erosions in the distal gastric body and scattered white plaques in the same area present with no stigmata of bleeding. Results showed no H. pylori in the presence of mild chronic inactive gastritis. ROS: Denies experiencing any syncopal episodes. No chest pain or palpitations. Denies having any recent fevers, chills or sweats. Denies having any urinary complaints. All other review of systems apart from what is mentioned above in HPI are negative. ED COURSE: In the emergency department she was noted to be normotensive but slightly tachycardic at 113 however that improved to the 90s. Laboratory studies are notable for a significantly low hemoglobin of 5.7 therefore she was given 2 units of packed red blood cells. EKG done in the emergency department showed a heart rate of 104, sinus tachycardia with no ST changes or T wave abnormalities. She was started on IV Protonix. CT of the abdomen and pelvis was done demonstrating no acute findings. She was noted to have colonic diverticulosis. Allergies/Adverse Reactions: Allergy/AdvReac Type Severity Reaction Status Date / Time Sulfa (Sulfonamide Allergy Verified 10/26/20 19:48 Antibiotics) sulfamethoxazole Allergy Verified 10/26/20 19:48 [From Bactrim] trimethoprim [From Bactrim] Allergy Verified 10/26/20 19:48 Home Medications: Medication Instructions Recorded Confirmed Type Alendronate Sodium 70 mg PO SEEPHYS 11/04/19 10/26/20 History Aspirin [Ecotrin Low Strength] 81 mg PO DAILY 11/04/19 10/26/20 History Cholecalciferol (Vitamin D3) 125 mcg PO DAILY 11/04/19 10/26/20 History [Vitamin D3] Multivit-Min/FA/Lycopen/Lutein 1 each PO DAILY 11/04/19 10/26/20 History [Centrum Silver Tablet] Oxybutynin Chloride 5 mg PO DAILY 11/04/19 10/26/20 History Ubidecarenone [Co Q-10] 100 mg PO DAILY 11/04/19 10/26/20 History Vitamin B Complex [B Complex] 1 tab PO DAILY 11/04/19 10/26/20 History Vitamin E (Dl,Tocopheryl Acet) 184 unit PO DAILY 11/04/19 10/26/20 History [Vitamin E] tiZANidine HCl [Tizanidine HCl] 4 mg PO QPM PRN 11/04/19 10/26/20 History Atorvastatin Calcium 40 mg PO HS #0 11/06/19 10/26/20 Rx Pantoprazole [Protonix] 40 mg PO BID #60 tab 11/17/19 10/26/20 Rx Lisinopril 2.5 mg PO DAILY 10/26/20 10/26/20 History Ranolazine [Ranexa] 1,000 mg PO BID 10/26/20 10/26/20 History Vitmain B12 500 mg PO DAILY 10/26/20 10/26/20 History Psyllium Husk [Daily Fiber] 0.52 gm PO DAILY #30 capsule 10/27/20 Rx Past History: PAST MEDICAL HISTORY: 1. CHF 2. Hyperlipidemia 3. Hypertension 4. CAD 5. Anxiety 6. Diverticulosis 7. History of retroperitoneal bleed with a repair by Dr. Rogers. PAST SURGICAL HISTORY: 1. Tonsillectomy 2. Cardiac cath with stent LCx in October 2019 3. Hysterectomy 4. Oophorectomy SOCIAL HISTORY: Patient lives alone and is fully independent at baseline. Denies any tobacco use, alcohol consumption or drug use. FAMILY HISTORY: Noncontributory Hospitalist Exam General Appearance: NAD, awake alert Eye: PERRL, anicteric sclera ENT: normocephalic atraumatic, moist mucosa Neck: supple, no lymphadenopathy Heart: RRR, no murmur, no gallops, no rubs, normal peripheral pulses Respiratory: CTAB, no wheezes, no rales, no ronchi, normal chest expansion Gastrointestinal: soft, tender to palpation (diffuse abdominal discomfort with palpation, worse in epigastric region) Extremities: no edema Skin: normal turgor, no lesions, no rashes Neurological: cranial nerve grossly intact, normal sensation to touch Musculoskeletal: normal tone, normal strength, no muscle wasting Psychiatric: normal affect, normal behavior, A&O x 3 Hospitalist Results Result Diagrams: 11/08/20 16:42 11/08/20 16:24 Lab results: Laboratory Last Values WBC 6.3 thou/uL (4.8-10.8) 11/08/20 16:42 RBC 1.98 mill/uL (4.20-5.40) L 11/08/20 16:42 Hgb 5.7 g/dL (12.0-16.0) L* 11/08/20 16:42 Hct 18.0 % (36.0-47.0) L 11/08/20 16:42 MCV 91.0 fL (78.0-98.0) 11/08/20 16:42 MCH 28.9 pg (27.0-31.0) 11/08/20 16:42 MCHC 31.8 g/dL (32.0-36.0) L 11/08/20 16:42 RDW 15.9 % (11.5-14.5) H 11/08/20 16:42 Plt Count 349 thou/uL (130-400) 11/08/20 16:42 MPV 7.0 fL (7.4-10.4) L 11/08/20 16:42 Neutrophils % 63.8 % (42.0-75.0) 11/08/20 16:42 Lymphocytes % 23.5 % (21.0-51.0) 11/08/20 16:42 Monocytes % 9.2 % (0.0-10.0) 11/08/20 16:42 Eosinophils % 2.8 % (0.0-10.0) 11/08/20 16:42 Basophils % 0.6 % (0.0-1.0) 11/08/20 16:42 Neutrophils # 4.0 thou/uL (1.40-6.50) 11/08/20 16:42 Lymphocytes # 1.5 thou/uL (1.20-3.40) 11/08/20 16:42 Monocytes # 0.6 thou/uL (0.11-0.59) H 11/08/20 16:42 Eosinophils # 0.2 thou/uL (0.0-0.7) 11/08/20 16:42 Basophils # 0.0 thou/uL (0.0-0.2) 11/08/20 16:42 PT 13.2 sec (12.0-14.7) 11/08/20 16:42 INR 1.0 11/08/20 16:42 APTT 21.6 sec (22.9-36.1) L 11/08/20 16:42 Sodium 137 mmol/L (136-145) 11/08/20 16:24 Potassium 3.8 mmol/L (3.5-5.1) 11/08/20 16:24 Chloride 105 mmol/L (98-107) 11/08/20 16:24 Carbon Dioxide 18 mmol/L (23-31) L 11/08/20 16:24 Anion Gap 18 mmol/L (10-20) 11/08/20 16:24 BUN 11 mg/dL (9.8-20.1) 11/08/20 16:24 Creatinine 0.77 mg/dL (0.6-1.1) 11/08/20 16:24 Estimated GFR (MDRD) 73 11/08/20 16:24 Glucose 106 mg/dL (83-110) 11/08/20 16:24 Calcium 8.6 mg/dL (7.8-10.44) 11/08/20 16:24 Total Bilirubin 0.3 mg/dL (0.2-1.2) 11/08/20 16:24 AST 18 U/L (5-34) 11/08/20 16:24 ALT 16 U/L (8-55) 11/08/20 16:24 Alkaline Phosphatase 57 U/L (40-110) 11/08/20 16:24 Serum Total Protein 6.3 g/dL (5.8-8.1) 11/08/20 16:24 Albumin 3.7 g/dL (3.4-4.8) 11/08/20 16:24 Globulin 2.6 g/dL (2.4-3.5) 11/08/20 16:24 Albumin/Globulin Ratio 1.4 g/dL (1.2-2.2) 11/08/20 16:24 Blood Type O POSITIVE 11/08/20 16:42 Antibody Screen NEGATIVE 11/08/20 16:42 Crossmatch See Detail 11/08/20 16:42 CT scan - abdomen Status: report reviewed by pa Hospitalist H&P A/P (1) GI bleed Code(s): K92.2 - GASTROINTESTINAL HEMORRHAGE, UNSPECIFIED Status: Acute (2) Anemia Code(s): D64.9 - ANEMIA, UNSPECIFIED Status: Chronic (3) Anxiety Code(s): F41.9 - ANXIETY DISORDER, UNSPECIFIED Status: Chronic (4) Hypertension Code(s): I10 - ESSENTIAL (PRIMARY) HYPERTENSION Status: Chronic (5) CAD (coronary artery disease) Code(s): I25.10 - ATHSCL HEART DISEASE OF [place] CORONARY ARTERY W/O ANG PCTRS Status: Chronic Qualifiers: Coronary Disease-Associated Artery/Lesion type: [place] artery (6) HLD (hyperlipidemia) Code(s): E78.5 - HYPERLIPIDEMIA, UNSPECIFIED Status: Chronic (7) GERD (gastroesophageal reflux disease) Code(s): K21.9 - GASTRO-ESOPHAGEAL REFLUX DISEASE WITHOUT ESOPHAGITIS Status: Chronic Plan: S/p 2 of 2 units PRBCs Repeat H/H Q6H NPO at midnight GI consult Continue IV Protonix BNP with AM labs Monitor BP Resume home medications once verified, as appropriate DVT prophylaxis with mechanical SCDs only CODE STATUS FULL Case discussed with Dr. Rojas who agrees with plan as above.
[2020-11-08] MEDS ORDERED: Acetaminophen 325 MG TAB PO PRN (22:02)
[2020-11-08] MEDS ORDERED: Acetaminophen 650 MG Suppository PR PRN (22:02)
[2020-11-08 23:47] VITALS: BMI 22.4
[2020-11-09 00:09] LABS: Hemoglobin 8.8 g/dL (12.0-16.0)
--- NOTE | 2020-11-09 03:43 | CON ---
DATE OF CONSULTATION: 11/08/2020 HISTORY OF PRESENT ILLNESS: The patient is a 79-year-old female who was seen in the office today by Dr. Chris. At that time, she had been complaining of 2-week history of gradually worsening fatigue and dyspnea on exertion. She reports some black dark stools but no red stools. She had an EGD in November of 2019, at which time she had some esophageal stricture and ulcers. She is on Plavix for a cardiac stent that was stopped approximately five days ago because it had been one year. She denies any nausea or vomiting. She does have diffuse upper abdominal pain. She has lost approximately 6 pounds lately. Her abdominal pain is worsened by eating. She denies any difficulty swallowing. On further questioning, she did seem to report she has had some difficulty with nausea and vomiting over the last several days. She had a normal colonoscopy except for diverticula three years ago. PAST MEDICAL HISTORY: Significant for gastroesophageal reflux, congestive heart failure, diverticulosis, cardiac stent. PAST SURGICAL HISTORY: Includes cholecystectomy, cataracts, appendectomy, hysterectomy, femoral artery repair. MEDICATIONS: Include 1. Alendronate 70 mg once q. week. 2. Aspirin 81 mg one p.o. daily. 3. Atorvastatin 40 mg one p.o. daily. 4. Buspirone 10 mg p.o. daily. 5. Multivitamin. 6. Clonazepam p.r.n. 7. Plavix 75 mg one p.o. daily up until five days ago. 8. Lisinopril 2.5 mg p.o. daily. 9. Protonix 40 mg p.o. daily. ALLERGIES: INCLUDE DAIRY PRODUCTS, DARVON, AND SULFA. SOCIAL HISTORY: Alcohol, she occasionally drinks. Does not smoke. FAMILY HISTORY: Negative for GI or liver disease. REVIEW OF SYSTEMS: Negative except for above. PHYSICAL EXAMINATION: GENERAL: Shows pale white female, in no acute distress. VITAL SIGNS: Blood pressure 150/60, pulse 115, and respiratory rate 20. HEENT: Significant for pale mucous membranes. NECK: Supple. CHEST: Clear. CARDIOVASCULAR: Regular rate and rhythm. ABDOMEN: Diffusely tender in the upper abdomen. RECTAL: Done in the office and was Hemoccult positive. EXTREMITIES: Normal. NEUROLOGIC: Nonfocal. ASSESSMENT: 1. GI bleeding-since the stool is dark, I suspect it is upper GI source. 2. Severe symptomatic anemia. 3. History of coronary artery disease, status post stent placement, on Plavix up until five days ago. 4. Gastroesophageal reflux disease. 5. History of esophageal stricture and ulcer. RECOMMENDATIONS: 1. Agree with transfusion. 2. Clear liquids tonight. 3. PPI. 4. EGD tomorrow. Job ID: [id number]
[2020-11-09 05:06] LABS: Anion Gap 13 mmol/L (10-20); BUN (Urea Nitrogen) 8 mg/dL (9.8-20.1); Calc. Creatinine Clearance 58 mL/min (70-130); Calcium 8.3 mg/dL (7.8-10.44); Carbon Dioxide 21 mmol/L (23-31); Chloride 108 mmol/L (98-107); Glucose 88 mg/dL (83-110); Potassium 3.9 mmol/L (3.5-5.1); Sodium 138 mmol/L (136-145)
[2020-11-09 05:16] LABS: #Basophils 0.1 thou/uL (0.0-0.2); #Eosinphils 0.3 thou/uL (0.0-0.7); #Lymphocytes 1.6 thou/uL (1.20-3.40); #Monocytes 0.5 thou/uL (0.11-0.59); #Neutrophils 3.4 thou/uL (1.40-6.50); %Basophils 1.1 % (0.0-1.0); %Monocytes 9.3 % (0.0-10.0); %Neutrophils 57.6 % (42.0-75.0); Hemoglobin 9.4 g/dL (12.0-16.0); Mean Corpuscular HGB CONC 33.9 g/dL (32.0-36.0); Mean Corpuscular Hemoglobin 31.3 pg (27.0-31.0); Mean Corpuscular Volume 92.2 fL (78.0-98.0); Mean Platelet Volume 7.2 fL (7.4-10.4); Platelet Count 249 thou/uL (130-400); RBC Distribution Width 15.1 % (11.5-14.5); Red Blood Cell (RBC) Count 2.99 mill/uL (4.20-5.40); White Blood Cell (WBC) Count 5.8 thou/uL (4.8-10.8)
[2020-11-09 09:32] LABS: SARS-CoV-2 PCR by NAA Not Detected (NotDetected)
[2020-11-09] MEDS ORDERED: PROPOFOL 200 MG/20 ML VIAL ONE (11:12)
--- NOTE | 2020-11-09 12:22 | PQF ---
CLINICAL DOCUMENTATION CLARIFICATION FORM: Dear Dr.K. Cerna Date: 11/09/2020 6477 Please exercise your independent, professional judgment in responding to the clarification form. Clinical indicators are provided on the bottom of this form for your review Please check appropriate box(es): [x ] Acute blood loss anemia [ ] Anemia: [ ] Aplastic [ ] Nutritional [ ] Drug induced (specify) [ ] Hemolytic [ ] Hereditary [ ] Acquired [ ] Autoimmune [ ] Non-autoimmune [ ] Enzyme disorder [ ] Chronic Anemia: [ ] Blood loss [ ] Hemolytic [ ] Simple [ ] Due to Vitamin B12 Deficiency [ ] Other [ ] Anemia of Chronic Disease (please specify) [ ] Other diagnosis [ ] Unable to determine In addition, please specify: Present on Admission (POA): [x ] Yes [ ] No [ ] Unable to determine For continuity of documentation, please document condition throughout progress notes and discharge summary. Thank You. To be completed by CDI/Coding staff for physician review: CLINICAL INDICATORS - SIGNS / SYMPTOMS / LABS / RESULTS AND LOCATION IN EMR 11/08 HgB 5.7 Pt reports SOB and black stools, sent by GI for decreasing HgB // Final Dx: GI Bleed (upper) Acute anemia, Esophagitis, gastritis, and PUD (ED Record) 11/08 Presents to Ed as directed by Dr. Chris following appointment with him today during which she was found to have guaiac positive stools. GI Bleed, Anemia, (H&P/ Mandel) 2 On Plavix up until 5 days ago, assessment: GI bleeding, severe symptomatic anemia (Mathur/Consult) 2 RISK FACTORS / RESULTS AND LOCATION IN EMR Advanced age (79), GI Bleed, Severe Anemia ( Mathur/Consult) 2 TREATMENTS / RESULTS AND LOCATION IN EMR Transfusion of PRBC x 2 units (11/08) GI Consult ( Mathur) 11/09 Thank you! CDS Signature: Anabella Garces RN Phone #: [phone] Date/Time:11/09/20 1210 This is a permanent part of the Medical Record [facility]
--- NOTE | 2020-11-09 12:25 | PQF ---
CLINICAL DOCUMENTATION CLARIFICATION FORM: Dear Dr.K. Cerna Date: 11/09/2020 3952 Please exercise your independent, professional judgment in responding to the clarification form. Clinical indicators are provided on the bottom of this form for your review Please check appropriate box(es): [ ] Acute blood loss anemia [ ] Anemia: [ ] Aplastic [ ] Nutritional [ ] Drug induced (specify) [ ] Hemolytic [ ] Hereditary [ ] Acquired [ ] Autoimmune [ ] Non-autoimmune [ ] Enzyme disorder [ ] Chronic Anemia: [ ] Blood loss [ ] Hemolytic [ ] Simple [ ] Due to Vitamin B12 Deficiency [ ] Other [ ] Anemia of Chronic Disease (please specify) [ ] Other diagnosis [ ] Unable to determine In addition, please specify: Present on Admission (POA): [ ] Yes [ ] No [ ] Unable to determine For continuity of documentation, please document condition throughout progress notes and discharge summary. Thank You. To be completed by CDI/Coding staff for physician review: CLINICAL INDICATORS - SIGNS / SYMPTOMS / LABS / RESULTS AND LOCATION IN EMR 11/08 HgB 5.7 Pt reports SOB and black stools, sent by GI for decreasing HgB // Final Dx: GI Bleed (upper) Acute anemia, Esophagitis, gastritis, and PUD (ED Record) 11/08 Presents to Ed as directed by Dr. Chris following appointment with him today during which she was found to have guaiac positive stools. GI Bleed, Anemia, (H&P/ Mandel) 2/ On Plavix up until 5 days ago, assessment: GI bleeding, severe symptomatic anemia (Mathur/Consult) 2/5 RISK FACTORS / RESULTS AND LOCATION IN EMR Advanced age (79), GI Bleed, Severe Anemia ( Mathur/Consult) 2 TREATMENTS / RESULTS AND LOCATION IN EMR Transfusion of PRBC x 2 units (11/08) GI Consult ( Mathur) 11/09 Thank you! CDS Signature: Anabella Garces RN Phone #: [phone] Date/Time:11/09/20 1210 This is a permanent part of the Medical Record [facility]
[2020-11-09] MEDS ORDERED: Promethazine HCl 25 MG/ML VIAL IM PRN (14:02)
[2020-11-09] MEDS ORDERED: Promethazine HCl 25 MG/ML VIAL SLOW IVP PRN (14:02)
[2020-11-09] MEDS ORDERED: Ondansetron HCl/PF 4 MG/2 ML Vial IVP PRN (14:02)
[2020-11-09] MEDS ORDERED: GoLYTELY 4,000 ml Bottle PO SCH (17:00)
--- NOTE | 2020-11-09 18:43 | PDOC.HOSPP ---
- Subjective Encounter Date: 11/09/20 Encounter Time: 16:00 Subjective: Patient up in bed no complaints - Objective Vital Signs & Weight: Vital Signs (12 hours) Temp Pulse Resp BP Pulse Ox 11/09/20 14:27 98.5 F 86 17 179/77 H 97 11/09/20 08:20 100 11/09/20 07:00 97.5 F L 86 19 118/57 L 100 Weight Weight 123 lb Result Diagrams: 11/09/20 04:04 11/09/20 04:04 Hospitalist ROS - Review of Systems Cardiovascular: denies: chest pain, palpitations, orthopnea, paroxysmal noc. dyspnea, edema, light headedness, other Gastrointestinal: denies: nausea, vomiting, abdominal pain, diarrhea, constipation, melena, hematochezia, other Genitourinary: denies: dysuria, frequency, incontinence, hematuria, retention, other - Medication Medications: Active Medications Generic Name Dose Route Start Last Admin Trade Name Freq PRN Reason Stop Dose Admin Polyethylene Glycol/Electrolytes 4,000 ml 11/09/20 17:00 11/09/20 18:26 Golytely 4,000 Ml Bottle PO 11/09/20 23:59 4,000 ml 1700 [facility] Administration Hospitalist Exam Vitals: Vital Signs (12 hours) Temp Pulse Resp BP Pulse Ox 11/09/20 14:27 98.5 F 86 17 179/77 H 97 11/09/20 08:20 100 11/09/20 07:00 97.5 F L 86 19 118/57 L 100 Weight Weight 123 lb Neck: supple Heart: RRR, no murmur, no gallops Respiratory: no wheezes, no rales Gastrointestinal: soft, non-tender, normal bowel sounds Hosp A/P (1) GERD (gastroesophageal reflux disease) Code(s): K21.9 - GASTRO-ESOPHAGEAL REFLUX DISEASE WITHOUT ESOPHAGITIS Status: Chronic (2) Hypertension Code(s): I10 - ESSENTIAL (PRIMARY) HYPERTENSION Status: Chronic (3) Anemia due to acute blood loss Code(s): D62 - ACUTE POSTHEMORRHAGIC ANEMIA Status: Acute (4) CAD (coronary artery disease) Code(s): I25.10 - ATHSCL HEART DISEASE OF [place] CORONARY ARTERY W/O ANG PCTRS Status: Chronic Qualifiers: Coronary Disease-Associated Artery/Lesion type: [place] artery (5) HLD (hyperlipidemia) Code(s): E78.5 - HYPERLIPIDEMIA, UNSPECIFIED Status: Chronic - Plan Status post EGD results pending. We will continue. Currently H&H stable. We will continue Protonix. Possible colonoscopy in a.m.
[2020-11-09] MEDS ORDERED: tiZANidine HCl 4 MG TAB PO PRN (18:44)
[2020-11-09] MEDS ORDERED: Atorvastatin Calcium 40 MG TAB PO SCH (21:00)
[2020-11-10] MEDS ORDERED: Cholecalciferol 1,000 UNITS (25 MCG) TAB PO SCH (09:00)
[2020-11-10] MEDS ORDERED: Cyanocobalamin (Vitamin B-12) 1,000 MCG TAB PO SCH (09:00)
[2020-11-10] MEDS ORDERED: Stress 600 With Zinc 1 TAB PO SCH (09:00)
[2020-11-10] MEDS ORDERED: Oxybutynin 5 MG TAB PO SCH (09:00)
--- NOTE | 2020-11-10 09:20 | OP ---
DATE OF PROCEDURE: 11/10/2020 PREOPERATIVE DIAGNOSES: 1. GI bleed. 2. Symptomatic anemia. DESCRIPTION OF PROCEDURE: After informed consent was obtained, the patient was placed in the left lateral decubitus position. Anesthesia administered per the Anesthesia Department. Forward-viewing endoscope was inserted in the rectum and passed to the cecum with ease. The cecum, ileocecal valve, and appendiceal orifice were normal. The prep was excellent. The cecum, ascending, transverse, descending, sigmoid, and rectum were normal except for a small 5 mm rectal polyp that was removed with cold snare polypectomy. Diffuse diverticula were noted. Retroflexion in the rectum showed no internal hemorrhoids. ASSESSMENT: 1. Small rectal polyp removed with cold snare polypectomy. 2. Diffuse diverticulosis coli. 3. Otherwise normal colonoscopy. RECOMMENDATIONS: 1. Await histopathology. 2. Outpatient capsule endoscopy. 3. Stable from GI standpoint for discharge. Job ID: [id number]
[2020-11-10] MEDS ORDERED: PROPOFOL 200 MG/20 ML VIAL ONE (11:00)
--- NOTE | 2020-11-10 13:29 | PDOC.DS.DS ---
Provider Date of Admission: 11/08/20 19:33 Admitting Provider: Blayne Rojas MD Consultations: Gastroentrology (Dr. Eusebio Mathur) Primary Care Physician: Keena Swift Course Hospital Course: Discharge diagnosis: 1. Acute blood loss anemia 2. Symptomatic anemia 3. Esophageal stricture Hospital course: Patient is a pleasant 79-year-old lady who was admitted to the hospital on November 08, 2020 for symptomatic anemia. She was seen by gastroenterology service. She underwent EGD on November 09, 2020. She had a proximal esophageal stricture, which was dilated. EGD was otherwise normal. On November 10 she underwent colonoscopy, and a small rectal polyp was removed with cold snare polypectomy. She had diffuse diverticulosis coli. Colonoscopy was otherwise normal. She has been recommended outpatient capsule endoscopy by GI service. GI service has cleared patient for discharge. She received 2 units packed RBC transfusion during this hospitalization. Many thanks for allowing me to participate in your patient's care. Please feel free to contact me with any questions or concerns. Discharge destination: Home Total amount of time spent coordinating this discharge: 31 minutes Resuscitation Status: 11/08/20 22:02 Resuscitation Status Routine Co-Sign Provider: Resuscitation Status: FULL: Full Resuscitation Lab Results: 11/09/20 04:04 11/09/20 04:04 Abnormal Lab Results - Last 48 hrs 11/08/20 16:24: Carbon Dioxide 18 L 11/08/20 16:42: RBC 1.98 L, Hgb 5.7 L*, Hct 18.0 L, MCHC 31.8 L, RDW 15.9 H, MPV 7.0 L, Monocytes # 0.6 H 11/08/20 16:42: Crossmatch See Detail 11/08/20 16:42: APTT 21.6 L 11/08/20 23:59: Hgb 8.8 L, Hct 26.7 L 11/09/20 04:04: Chloride 108 H, Carbon Dioxide 21 L, BUN 8 L 11/09/20 04:04: RBC 2.99 L, Hgb 9.4 L, Hct 27.6 L, MCH 31.3 H, RDW 15.1 H, MPV 7.2 L, Basophils % 1.1 H Vitals: Vital Signs (12 hours) Temp Pulse Resp BP Pulse Ox 11/10/20 11:38 98.2 F 105 H 14 115/56 L 99 11/10/20 09:10 96 11/10/20 08:00 98.3 F 81 16 169/80 H 96 11/10/20 03:38 97.9 F 95 18 121/56 L 94 L Weight Weight 118 lb 12.8 oz Physical Exam: The patient was seen and examined on the day of discharge. Patient denies chest pain or shortness of breath. Vital signs are stable. S1 and S2 are heard. Lungs are clear to auscultation bilaterally. Plan Home Medications: Medication Instructions Recorded Confirmed Type Alendronate Sodium 70 mg PO SEEPHYS 11/04/19 11/09/20 History Aspirin [Ecotrin Low Strength] 81 mg PO DAILY 11/04/19 11/09/20 History Cholecalciferol (Vitamin D3) 125 mcg PO DAILY 11/04/19 11/09/20 History [Vitamin D3] Multivit-Min/FA/Lycopen/Lutein 1 each PO DAILY 11/04/19 11/09/20 History [Centrum Silver Tablet] Oxybutynin Chloride 5 mg PO DAILY 11/04/19 11/09/20 History Ubidecarenone [Co Q-10] 100 mg PO DAILY 11/04/19 11/09/20 History Vitamin B Complex [B Complex] 1 tab PO DAILY 11/04/19 11/09/20 History Vitamin E (Dl,Tocopheryl Acet) 184 unit PO DAILY 11/04/19 11/08/20 History [Vitamin E] tiZANidine HCl [Tizanidine HCl] 4 mg PO QPM PRN 11/04/19 11/08/20 History Atorvastatin Calcium 40 mg PO HS #0 11/06/19 11/09/20 Rx Pantoprazole [Protonix] 40 mg PO BID #60 tab 11/17/19 11/09/20 Rx Lisinopril 2.5 mg PO DAILY 10/26/20 11/09/20 History Ranolazine [Ranexa] 1,000 mg PO BID 10/26/20 11/09/20 History Vitmain B12 500 mg PO DAILY 10/26/20 11/08/20 History Allergies: lactose Allergy (Verified 11/08/20 23:51) Sulfa (Sulfonamide Antibiotics) Allergy (Verified 11/08/20 23:51) sulfamethoxazole [From Bactrim] Allergy (Verified 11/08/20 23:51) trimethoprim [From Bactrim] Allergy (Verified 11/08/20 23:51) Activity:: Activity as Tolerated Nourishment:: Heart Healthy Diet Referrals: Katya Torres MD [Primary Care Provider] - 3 Days Lex Chris MD [Active] - 10 Days Disposition: HOME Quality CORE MEASURES:: N/A
[2020-11-10 15:46] VITALS: BP 125/58; TEMP 98.4
--- NOTE | 2020-11-11 10:43 | OP ---
DATE OF PROCEDURE: 11/09/2020 PREOPERATIVE DIAGNOSES: 1. Gastrointestinal bleeding. 2. Dysphagia. DESCRIPTION OF PROCEDURE: After informed consent was obtained, the patient is placed in left lateral decubitus position. Anesthesia was administered per the Anesthesia Department. Forward-viewing endoscope was inserted into esophagus under direct visualization with ease and passed to the second portion of the duodenum with ease. Second portion of duodenum, duodenal bulb were normal. The pylorus, antrum, body, fundus, and cardia were normal. Retroflexion in stomach was normal. No blood was seen in the esophagus or the stomach. The esophagus was normal except for a web-like stricture at the upper esophageal sphincter. No mucosal abnormalities were noted with this web-like area and it was dilated with 12 mm balloon. Mucosal tear was noted after the dilatation. ASSESSMENT: 1. Esophageal stricture-status post dilatation with balloon to 12 mm. 2. Otherwise normal esophagogastroduodenoscopy. RECOMMENDATIONS: Proceed with colonoscopy tomorrow. Job ID: [id number]
--- NOTE | 2020-11-12 03:54 | PQF ---
CLINICAL DOCUMENTATION CLARIFICATION FORM: Dear : Eusebio Mathur Date / Time: 11/12/2020352 Please exercise your independent, professional judgment in responding to the clarification form. Clinical indicators are provided on the bottom of this form for your review Please check appropriate box(es): In the description of the operative procedure a Mucosal tear was noted by the surgeon. If possible would you please further clarify if this was: [ ] Incidental occurrence inherent in the surgical procedure [ ] Complication of the procedure [ ] Other [ ] Unable to determine Physician Signature: Date/Time: For continuity of documentation, please document condition throughout progress notes and discharge summary. Thank You. 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 Procedure 11/09 Dr Mathur [x] No mucosal abnormalities were noted with this web-like area and it was dilated with 12 m balloon Procedure 11/09 Dr Mathur [x] Mucosal tear was noted after the dilation Procedure 11/09 Dr Mathur Present Risk Factors Results and Location in Medical Record [x] Gastrointestinal bleeding Procedure 11/09 Dr Mathur [x] Dysphagia Procedure 11/09 Dr Mathur [x] Esophageal stricture Procedure 11/09 Dr Mathur Present Treatments Results and Location in Medical Record [x] EGD with Dilation Procedure 11/09 Dr Mathur [x] GI consult Consult Dr Mathur CDS/Commercial Artist Lettering Signature: Maria T Cajarod Phone #: [phone] Date/Time: 11/12/20352 This is a permanent part of the Medical Record [facility]
--- NOTE | 2020-11-12 03:55 | PQF ---
CLINICAL DOCUMENTATION CLARIFICATION FORM: Dear : Ld You Date / Time: 11/12/2020353 Please exercise your independent, professional judgment in responding to the clarification form. Clinical indicators are provided on the bottom of this form for your review In your clinical opinion based on clinical findings below, can you please identify the etiology of GI bleeding if due to: Please check appropriate box(es): [ ] Esophageal Stricture [ ] Diverticulosis [ ] Rectal polyp [ x] Other diagnosis ___probable small intestine bleed [ ] Unable to determine In addition, please specify: Present on Admission (POA): [ x ] Yes [ ] No [ ] Unable to determine Physician Signature: Date/Time: For continuity of documentation, please document condition throughout progress notes and discharge summary. Thank You. 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 Procedure 11/09 Dr Mathur [x] Esophageal stricture Procedure 11/09 Dr Mathur [x] Diverticulosis Procedure 11/09 Dr Mathur [x] Rectal polyp Procedure 11/09 Dr Mathur [x] Acute blood loss anemia PN p2 11/09 Dr Cerna Present Risk Factors Results and Location in Medical Record [x] 79 year-old Female H&P p1 / [facility] [x] HTN H&P p1 11/08 [facility] [x] Anemia H&P p1 11/08 [facility] [x] GERD H&P p1 11/08 [facility] Present Treatments Results and Location in Medical Record [x] EGD with Dilation Procedure 11/09 Dr Mathur [x] Colonoscopy with Polypectomy Procedure 11/09 Dr Mathur [x] GI consult Consult Dr Mathur CDS/Landscaping Crew Leader Signature: Maria T Cajarod Phone #: [phone] Date/Time: 11/12/209 This is a permanent part of the Medical Record [facility]
== END 2020-11-10 16:06 | disposition home or self-care (01) | DRG 378 ==
LOC: ERS 16:11 → 2NO 19:33
PROVIDERS: ADMIT Student in an Organized Health Care Education/Training Program; ATTEND Internal Medicine
PROC: 30233N1 Transfusion of Nonautologous Red Blood Cells into Peripheral Vein, Percutaneous Approach (ICD-10-PCS; 2020-11-08)
PROC: 0D718ZZ Dilation of Upper Esophagus, Via Natural or Artificial Opening Endoscopic (ICD-10-PCS; principal; 2020-11-09)
PROC: 0DBP8ZZ Excision of Rectum, Via Natural or Artificial Opening Endoscopic (ICD-10-PCS; 2020-11-09)
DX: K92.2 Gastrointestinal hemorrhage, unspecified (principal); D62 Acute posthemorrhagic anemia; Z20.822 Contact with and (suspected) exposure to COVID-19; E78.5 Hyperlipidemia, unspecified; I25.10 Atherosclerotic heart disease of native coronary artery without angina pectoris; F41.9 Anxiety disorder, unspecified; K21.9 Gastro-esophageal reflux disease without esophagitis; K22.2 Esophageal obstruction; K57.30 Diverticulosis of large intestine without perforation or abscess without bleeding; K62.1 Rectal polyp; Z90.49 Acquired absence of other specified parts of digestive tract; Z90.710 Acquired absence of both cervix and uterus; Z90.721 Acquired absence of ovaries, unilateral; Z98.49 Cataract extraction status, unspecified eye; Z79.82 Long term (current) use of aspirin
CPT/HCPCS: 36415; 36430; 74177; 80048; 80053; 85025; 85610; 85730; 86850; 86900; 86901; 87635; 88304; 93005; 94760; 96365; C9113; J2704; J3490; P9016; Q9967; U0003; U0005

== ENCOUNTER 2020-12-05 20:05 | Inpatient (IN) | payer MEDICARE, OTHER ==
[2020-12-05] MEDS ORDERED: Nitroglycerin 2% Ointment 1 INCH/1 GM Packet ONE (20:41)
[2020-12-05 20:49] LABS: #Eosinphils 0.2 thou/uL (0.0-0.7); #Lymphocytes 1.8 thou/uL (1.20-3.40); #Monocytes 0.4 thou/uL (0.11-0.59); #Neutrophils 3.5 thou/uL (1.40-6.50); %Basophils 0.8 % (0.0-1.0); %Eosinophils 3.6 % (0.0-10.0); %Lymphocytes 30.3 % (21.0-51.0); %Monocytes 7.3 % (0.0-10.0); Hemoglobin 11.2 g/dL (12.0-16.0); Mean Corpuscular HGB CONC 33.1 g/dL (32.0-36.0); Mean Corpuscular Hemoglobin 30.2 pg (27.0-31.0); Mean Corpuscular Volume 91.1 fL (78.0-98.0); Platelet Count 210 thou/uL (130-400); RBC Distribution Width 13.2 % (11.5-14.5); White Blood Cell (WBC) Count 6.1 thou/uL (4.8-10.8)
[2020-12-05 21:11] LABS: ALT (SGPT) 20 U/L (8-55); AST (SGOT) 22 U/L (5-34); Albumin 3.9 g/dL (3.4-4.8); Alkaline Phosphatase 74 U/L (40-110); Anion Gap 13 mmol/L (10-20); BUN (Urea Nitrogen) 12 mg/dL (9.8-20.1); Bilirubin, Total 0.4 mg/dL (0.2-1.2); CK (CPK) 58 U/L (29-168); Calc. Creatinine Clearance 0 mL/min (70-130); Calcium 9.1 mg/dL (7.8-10.44); Carbon Dioxide 25 mmol/L (23-31); Chloride 104 mmol/L (98-107); Glucose 100 mg/dL (83-110); Potassium 4.1 mmol/L (3.5-5.1); Protein, Total 6.9 g/dL (5.8-8.1); Sodium 138 mmol/L (136-145)
[2020-12-05] MEDS ORDERED: Aspirin 325 MG TAB PO SCH (22:45)
[2020-12-06 00:03] VITALS: BMI 21.0
[2020-12-06] MEDS ORDERED: Lidocaine 2% Viscous Solution 10 ML, Aluminum & Magnesium Hydroxide 30 ML SSW SCH (00:30)
[2020-12-06 04:30] LABS: SARS-CoV-2 PCR by NAA Not Detected (NotDetected)
[2020-12-06] MEDS: Nitroglycerin 2% Ointment 1 INCH/1 GM Packet TOP SCH ×3 (07:10→21:12)
[2020-12-06 07:19] LABS: Cardiac Risk 3.7 (Less than 4.5); Magnesium 1.9 mg/dL (1.6-2.6)
[2020-12-06] MEDS ORDERED: tiZANidine HCl 4 MG TAB PO PRN (11:52)
[2020-12-06] MEDS ORDERED: Atorvastatin Calcium 40 MG TAB PO SCH (21:00)
[2020-12-06] MEDS ORDERED: Oxybutynin 5 MG TAB PO SCH (21:00)
[2020-12-07] MEDS: Nitroglycerin 2% Ointment 1 INCH/1 GM Packet TOP SCH (06:40)
[2020-12-07 08:27] VITALS: BP 117/61; TEMP 97.6
[2020-12-07] MEDS ORDERED: Vitamin E 400 UNITS CAP PO SCH (09:00)
[2020-12-07] MEDS ORDERED: Ubidecarenone 50 MG CAP PO SCH (09:00)
[2020-12-07] MEDS ORDERED: Non-Formulary Item 1 EACH (Cholecalciferol (Vitamin D3) [Vitamin D3] 5,000 UNITS Capsule) PO SCH (09:00)
[2020-12-07] MEDS ORDERED: Multivitamin W/ Minerals 1 TAB PO SCH (09:00)
[2020-12-07] MEDS ORDERED: CYANOCOBALAMIN 500 MG PO SCH (09:00)
[2020-12-07] MEDS ORDERED: VITAMIN E 100 UNIT PO SCH (09:00)
[2020-12-07] MEDS ORDERED: Non-Formulary Item 1 EACH (Ubidecarenone [Co Q-10] 200 MG Capsule) PO SCH (09:00)
[2020-12-07] MEDS ORDERED: Aspirin 81 mg Enteric Coated Tablet PO SCH (09:00)
[2020-12-07] MEDS ORDERED: Cholecalciferol 1,000 UNITS (25 MCG) TAB PO SCH (09:00)
[2020-12-07] MEDS ORDERED: Lisinopril 2.5 MG TAB PO SCH (09:00)
[2020-12-07] MEDS ORDERED: Cyanocobalamin (Vitamin B-12) 1,000 MCG TAB PO SCH (09:00)
== END 2020-12-07 10:36 | disposition home or self-care (01) | DRG 303 ==
LOC: ERS 20:05 → 3SE 21:57 → OBSVTOIN 12-06 18:20
PROVIDERS: ADMIT Student in an Organized Health Care Education/Training Program; ATTEND Family Medicine
DX: I25.10 Atherosclerotic heart disease of native coronary artery without angina pectoris (principal); E78.5 Hyperlipidemia, unspecified; Z20.822 Contact with and (suspected) exposure to COVID-19; I11.0 Hypertensive heart disease with heart failure; F41.9 Anxiety disorder, unspecified; K21.9 Gastro-esophageal reflux disease without esophagitis; I50.9 Heart failure, unspecified; Z95.5 Presence of coronary angioplasty implant and graft; Z88.1 Allergy status to other antibiotic agents; Z88.2 Allergy status to sulfonamides; Z88.8 Allergy status to other drugs, medicaments and biological substances; Z79.82 Long term (current) use of aspirin; Z79.899 Other long term (current) drug therapy; Z90.710 Acquired absence of both cervix and uterus
CPT/HCPCS: 36415; 71045; 80053; 80061; 82550; 83735; 84484; 85025; 87635; 93005; 94760; G0378; U0003; U0005

== ENCOUNTER 2022-06-17 09:28 | Outpatient (CLI) | payer MEDICARE, OTHER | END 2022-06-17 09:29 | disposition home or self-care (01) | LOC: ULT 09:28 | PROVIDERS: ATTEND Physician Assistant Medical | DX: R10.13 Epigastric pain (principal); K21.9 Gastro-esophageal reflux disease without esophagitis | CPT/HCPCS: 76705 ==

== ENCOUNTER 2024-02-16 13:31 | Outpatient (CLI) | payer MEDICARE, OTHER | END 2024-02-16 13:32 | disposition home or self-care (01) | LOC: BICMAMMO 13:31 | PROVIDERS: ATTEND Physician Assistant | DX: Z13.820 Encounter for screening for osteoporosis (principal); Z78.0 Asymptomatic menopausal state; M81.0 Age-related osteoporosis without current pathological fracture | CPT/HCPCS: 77080 ==

== ENCOUNTER 2024-03-08 04:52 | Observation (INO) | payer MEDICARE, OTHER ==
[2024-03-08 06:59] VITALS: BMI 21.7
[2024-03-08] MEDS ORDERED: Ondansetron PF 4 MG/2 ML Vial IVP PRN (07:48)
[2024-03-08] MEDS ORDERED: Acetaminophen 650 MG Suppository PR PRN (07:48)
[2024-03-08] MEDS ORDERED: Ondansetron ODT 4 MG TAB PO PRN (07:48)
[2024-03-08] MEDS ORDERED: Acetaminophen 325 MG TAB PO PRN (07:48)
[2024-03-08] MEDS: Pantoprazole 40 MG VIAL IVP SCH (08:37)
[2024-03-08] MEDS: Lidocaine 2% Viscous Solution 10 ML, Aluminum & Magnesium Hydroxide 30 ML SSW SCH (11:21)
[2024-03-08 17:22] LABS: Troponin I Less than 0.010 ng/mL (< 0.028)
[2024-03-08 19:12] LABS: Troponin I Less than 0.010 ng/mL (< 0.028)
[2024-03-08] MEDS: Latanoprost 0.005% Ophth Soln 2.5 ml Bottle L EYE SCH (20:17)
[2024-03-08] MEDS: Atorvastatin Calcium 40 MG TAB PO SCH (20:17)
[2024-03-08] MEDS: Oxybutynin ER 5 MG TAB PO SCH (20:25)
[2024-03-08] MEDS ORDERED: Oxybutynin 5 MG TAB PO SCH (21:00)
[2024-03-09 06:15] LABS: #Basophils 0.06 10x3/uL (0.0-0.2); %Lymphocytes 29.2 % (21.0-51.0); %Monocytes 9.7 % (0.0-10.0); %Neutrophils 55.8 % (42.0-75.0); Hematocrit 39.3 % (36.0-47.0); Mean Corpuscular HGB CONC 33.1 g/dL (32.0-36.0); Mean Corpuscular Hemoglobin 29.1 pg (27.0-31.0); Mean Corpuscular Volume 88.1 fL (78.0-98.0); Mean Platelet Volume 11.5 fL (7.4-10.4); Platelet Count 181 10x3/uL (130-400); RBC Distribution Width 13.2 % (11.5-14.5); Red Blood Cell (RBC) Count 4.46 mill/uL (4.20-5.40)
[2024-03-09 06:27] LABS: Anion Gap 14 mmol/L (10-20); BUN (Urea Nitrogen) 7 mg/dL (9.8-20.1); Calc. Creatinine Clearance 50 mL/min (70-130); Carbon Dioxide 21 mmol/L (23-31); Chloride 109 mmol/L (98-107); Estimated GFR 81; Glucose 89 mg/dL (83-110); Potassium 4.1 mmol/L (3.5-5.1); Sodium 140 mmol/L (136-145)
[2024-03-09] MEDS: Aspirin 81 mg Enteric Coated Tablet PO SCH (08:53)
[2024-03-09] MEDS ORDERED: PROPOFOL 20 ML ONE (10:07)
[2024-03-09] MEDS ORDERED: Lidocaine 1% PF 5 ML VIAL ONE (10:07)
[2024-03-09] MEDS ORDERED: fentaNYL 50 mcg/mL 1 mL Vial ONE (10:16)
[2024-03-09] MEDS ORDERED: hydrALAZINE 20 MG/ML VIAL SLOW IVP PRN (11:08)
[2024-03-09 12:12] VITALS: TEMP 98
[2024-03-09 16:57] VITALS: BP 184/77
[2024-03-10] MEDS ORDERED: Pantoprazole DR 40 MG TAB PO SCH (09:00)
== END 2024-03-09 16:56 | disposition home or self-care (01) ==
LOC: T4-A 04:52
PROVIDERS: ADMIT Internal Medicine; ATTEND Family Medicine
PROC: 0DJ08ZZ Inspection of Upper Intestinal Tract, Via Natural or Artificial Opening Endoscopic (ICD-10-PCS; principal; 2024-03-09)
DX: K31.7 Polyp of stomach and duodenum (principal); K21.9 Gastro-esophageal reflux disease without esophagitis; I25.10 Atherosclerotic heart disease of native coronary artery without angina pectoris; E78.5 Hyperlipidemia, unspecified; I77.4 Celiac artery compression syndrome; I10 Essential (primary) hypertension; F41.9 Anxiety disorder, unspecified; Z87.19 Personal history of other diseases of the digestive system; Z90.710 Acquired absence of both cervix and uterus; Z90.721 Acquired absence of ovaries, unilateral; Z90.89 Acquired absence of other organs; Z79.899 Other long term (current) drug therapy; Z79.82 Long term (current) use of aspirin; Z88.2 Allergy status to sulfonamides; Z91.011 Allergy to milk products; Z88.8 Allergy status to other drugs, medicaments and biological substances; Z95.5 Presence of coronary angioplasty implant and graft
CPT/HCPCS: 45385; 76705; 80048; 84484; 85025; 96374; C9113; G0378 ×2; J2704; J3010; 36415